=== PATIENT | female | born 2000 | race Caucasian/White ===

== ENCOUNTER → 2023-12-16 15:22 | Outpatient (CLI) | payer OTHER, SELFPAY ==
[2023-12-16 17:11] LABS: Add Manual Diff / Slide Review NO; Basophils Absolute Auto 0 /uL (0-100); Basophils Percent Auto 0.2 % (0-2); Eosinophils Absolute Auto 100 /uL (0-450); Eosinophils Percent Auto 0.6 % (2-4); Hematocrit 30.2 % (36-46); Hemoglobin 10.4 g/dL (12.0-16.0); Lymphocytes Absolute Auto 2500 /uL (1100-4500); Lymphocytes Percent Auto 20.6 % (25-40); Mean Corpuscular HGB Conc 34.3 % (30-36); Mean Corpuscular Hemoglobin 29.5 PG (26-34); Mean Corpuscular Volume 85.9 fL (80-100); Monocytes Absolute Auto 700 /uL (0-900); Neutrophils Absolute Auto 8900 /uL (1500-7000); Neutrophils Percent Auto 72.6 % (50-75); Platelet Count 272 X10^3/uL (150-400); Red Blood Cell Count 3.52 X10^6/uL (4.0-5.2); Red Cell Distribution Width 13.9 % (11.6-14.8); White Blood Cell Count 12.3 X10^3/uL (4.5-11.0)
[2023-12-16 17:20] LABS: Hemoglobin A1C% w Est Avg Glu 5.1 % (4.0-6.0)
[2023-12-16 17:21] LABS: Appearance Urine UA CLOUDY; Bilirubin Urine UA NEGATIVE (NEGATIVE); Color Urine UA YELLOW; Glucose Urine UA NEGATIVE (Negative); Ketones Urine UA TRACE (NEGATIVE); Leukocyte Esterase Urine UA 1+ (NEGATIVE); Nitrite Urine UA NEGATIVE (Negative); Occult Blood Urine UA NEGATIVE (Negative); Protein Urine UA TRACE (Negative)
[2023-12-16 17:33] LABS: pH Urine UA 8.5 (4.5-8.0)
[2023-12-16 17:38] LABS: Amorphous Sediment Urine 2+; Bacteria Urine Many (>30); RBC Urine None Seen (0-5/HPF); Squamous Epithelial Cell Urine 10-30 /HPF (0-5/HPF); Urine Volume 10mL (spun); WBC Urine 5-10/HPF (0-5/HPF)
[2023-12-16 21:37] LABS: Hepatitis B Surface Antigen NEGATIVE s/c (NEGATIVE); Rubella Antibody IgG 42.7 IU/mL (>15)
[2023-12-16 21:53] LABS: Hep C Virus Ab w/Reflex Quant NEGATIVE s/c (NEGATIVE)
[2023-12-16 21:54] LABS: HIV 1 & 2 Ab/Ag 4th Gen Combo NEGATIVE (NEGATIVE)
== END ==
PROVIDERS: Referring Provider Family Medicine; Visit Provider Family Medicine
DX: O99.210 Obesity complicating pregnancy, unspecified trimester (principal)
CPT/HCPCS: 36415; 80055; 81003; 81015; 83036; 86787; 86803; 86850; 86900; 86901; 87086; 87389

== ENCOUNTER 2023-12-29 22:57 | Emergency (ER) | payer OTHER, SELFPAY ==
[2023-12-29 23:08] VITALS: BP 142/68; PULSE 96; RESP 18; TEMP 36.9; O2SAT 99; BMI 37.3
--- NOTE | 2023-12-29 23:11 | ED_ITS ---
HPI - Nausea/Vomiting/Diarrhea General Chief complaint: Nausea/Vomiting/Diarrhea Stated complaint: , persistent nausea Time Seen by Provider: 12/29/23 23:00 History of Present Illness HPI Narrative: 23yo at 9wks gestation presents for N/V. Reports 2-3 episodes of emesis daily. Previously went to walk-in clinic, given zofran, however still having episodes of emesis. Denies vaginal bleeding, contractions. Related Data Home Medications Medication Instructions Recorded Confirmed cholecalciferol (vitamin D3) 125 125 mcg PO DAILY 11/28/23 12/15/23 mcg (5,000 unit) capsule ferrous fumarate 325 mg (106 mg 325 mg PO DAILY 11/28/23 12/15/23 iron) tablet (Queenie) vitamin-ferrous sulfate tab PO 11/28/23 12/15/23 27 mg iron-folic acid 0.8 mg tablet Previous Rx's Medication Instructions Recorded ondansetron 4 mg disintegrating 4 mg PO Q8H PRN nausea and 12/29/23 tablet vomiting #30 tabs metoclopramide HCl 10 mg tablet 10 mg PO Q6H PRN nausea and 12/30/23 vomiting #30 tabs Allergies Allergy/AdvReac Type Severity Reaction Status Date / Time No Known Drug Allergies Allergy Unverified 12/15/23 11:57 Patient History Medical History ADD (attention deficit disorder) Depression COVID-19 Surgical History Status post cryotherapy of skin lesion [place] teeth extracted History of removal of skin mole (~2008) Family History Mother Hypertension Thyroid cancer Nodular thyroid disease Father Hyperlipidemia Hypertension Skin cancer Degenerative disc disease History of spinal fusion Grandmother Type 1 diabetes Dementia Grandmother Diabetes mellitus Diabetic kidney disease Grandfather Heavy smoker Aunt Insomnia Aunt Hypertension Heart disease Uncle Stroke Smoker Social History marital status: unmarried,living together number of children: 2 (4 year old stepson, 2 year old stepdaughter) household members: significant other and children lives independently: Yes caregiver/support person: Yes housing: [facility] ([facility]) pets and animals: Yes (2 cats; s/o managing litter boxes) education level: high school 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[employer]) current occupational exposures/hazards: No special chiki needs: No travel history: recent ([place], [place]) seatbelt use: always helmet use: Yes water heater temp set < 120 deg: Yes working smoke detector in home: Yes fire extinguisher in home: No carbon monox detector in home: Yes firearms in home: Yes firearms unloaded and locked: Yes do you feel safe at home: Yes Smoking Status: Never smoker second hand exposure: Yes (social exposure) alcohol intake: former (typically 1 glass wine daily when not ) substance use type: does not use during the past year weight has: other (wide (10-20lb fluctuates)) well-balanced diet: about half the time daily servings fruits/ve-4 caffeine: Yes (occasional soft drinks or Cook) Type(s) of exercise: none and walking Smoking Status: Never smoker Exam Initial Vital Signs Initial Vital Signs: Vital Signs Temperature 98.4 F 12/29/23 23:08 Pulse Rate 96 H 12/29/23 23:08 Respiratory Rate 18 12/29/23 23:08 Blood Pressure 142/68 H 12/29/23 23:08 Pulse Oximetry 99 12/29/23 23:08 Oxygen Delivery Method Room Air 12/29/23 23:08 Const: Awake, alert, no acute distress, nontoxic appearing Cardiac: regular rate, regular rhythm RESP: unlabored, clear bilaterally, no wheezing GI: Soft, nontender, nondistended Skin: Warm, Dry, intact, no rashes Neuro: AO x3, CN II-XII grossly intact, moves all extremities Course Orders Ordered: ED Orders 12/29/23 23:30 CBC Auto Diff [Complete Blood Count AUTO DIFF] Stat CMP [Comprehensive Metabolic Panel] Stat 12/30/23 00:56 Urine Microscopic Stat Discontinued Medications Sodium Chloride (Normal Saline 0.9%) 1,000 mls @ 1,000 mls/hr IV BOLUS ONE Stop: 12/30/23 00:07 Last Infusion: 12/30/23 00:17 Dose: Infused Documented By: Admin: 12/29/23 23:17 Dose: 1,000 mls/hr Documented By: Metoclopramide HCl (Metoclopramide 10 Mg/2 Ml Inj) 10 mg IV NOW ONE Stop: 12/29/23 23:09 Last Admin: 12/29/23 23:17 Dose: 10 mg Documented By: Vital Signs Vital signs: Vital Signs - 8 hr 12/29/23 23:08 Temperature 98.4 F Pulse Rate 96 H Respiratory Rate 18 Blood Pressure 142/68 H Pulse Oximetry 99 Oxygen Delivery Method Room Air MDM - Nausea/Vomiting/Diarrhea Lab Data 12/29/23 23:30 12/29/23 23:30 Labs: Lab Results 12/29/23 12/30/23 Range/Units 23:30 00:56 WBC 11.1 H (4.5-11.0) X10^3/uL RBC 3.66 L (4.0-5.2) X10^6/uL Hgb 10.7 L (12.0-16.0) g/dL Hct 31.7 L (36-46) % MCV 86.5 (80-100) fL MCH 29.2 (26-34) PG MCHC 33.7 (30-36) % RDW 13.5 (11.6-14.8) % Plt Count 274 (150-400) X10^3/uL Neut % (Auto) 68.6 (50-75) % Lymph % (Auto) 23.4 L (25-40) % [place] % (Auto) 7.1 (3-14) % Eos % (Auto) 0.3 L (2-4) % Baso % (Auto) 0.6 (0-2) % Neut # (Auto) 7600 H (6365-2124) /uL Lymph # (Auto) 2600 (7186-7782) /uL [place] # (Auto) 800 (0-900) /uL Eos # (Auto) 0 (0-450) /uL Baso # (Auto) 100 (0-100) /uL Sodium 135 L (137-145) mmol/L Potassium 3.6 (3.4-5.1) mmol/L Chloride 102 (98-107) mmol/L Carbon Dioxide 23 (22-32) mmol/L BUN 6 L (7-17) mg/dL Creatinine 0.57 (0.52-1.04) mg/dL Estimated GFR > 60 (>60) mL/min BUN/Creatinine Ratio 10.5 (6-22) Glucose 107 H (70-100) mg/dL Calcium 9.3 (8.4-10.2) mg/dL Total Bilirubin 0.4 (0.2-1.3) mg/dL AST 36 (14-36) IU/L ALT 54 H (<35) IU/L Alkaline Phosphatase 78 (38-126) U/L Total Protein 7.4 (6.3-8.2) g/dL Albumin 4.0 (3.5-5.0) g/dL Globulin 3.4 (1.7-4.1) g/dL Albumin/Globulin Ratio 1.2 (1.0-2.8) Urine RBC 0-1/hpf (0-5/HPF) Urine WBC 0-1/hpf (0-5/HPF) Ur Squamous Epith Cells 10-30 /hpf H (0-5/HPF) Amorphous Sediment 1+ Urine Bacteria Few (2-10) H (None) Ur Culture Indicated? Cult not indicated Vol Urine Centrifuged 10ml (spun) Urine Dip Bedside Urine Glucose Negative Bedside Urine Bilirubin - Negative Bedside Urine Ketone - Negative Urine Specific [place] 1.020 Bedside Urine Occult Blood - Negative Bedside Urine pH 6.0 Bedside Urine Protein - Negative Bedside Urine Urobilinogen 1+ 2mg Bedside Urine Nitrite - Negative Bedside Urine Leukocytes +/- 15 Esterase MDM Narrative Medical decision making narrative: Nausea and vomiting in early . Already confirmed IUP. No abdominal pain. Laboratory work unremarkable. Urinalysis with some leukocyte esterase, however contaminated by multiple squamous cells. Low suspicion for infection, patient denies signs or symptoms of UTI. Nausea controlled with Reglan. Prescription sent to pharmacy of choice. OBGYN follow up advised. Note for work provided Discharge Plan Departure Patient Disposition: Home Clinical Impression: Vomiting of Instructions: DI for Hyperemesis Gravidarum Activity Restrictions/Additional Instructions: Reglan, which is a different nausea medication approved in , has been sent to the [facility] in [place]. If you are still having vomiting with this medication then I recommend talking to your OBGYN about other medication options you may use. Your laboratory work here is normal without signs of dehydration. Your urine had some bacteria, but also a lot of skin cells, which can contaminate the sample. I do not suspect a urine infection at this time Prescriptions: New metoclopramide HCl 10 mg tablet 10 mg PO Q6H PRN (Reason: nausea and vomiting) Qty: 30 0RF No Action ondansetron 4 mg tablet,disintegrating 4 mg PO Q8H PRN (Reason: nausea and vomiting) Qty: 30 0RF vit-ferrous sulfat-FA 27 mg iron- 0.8 mg tablet PO cholecalciferol (vitamin D3) 125 mcg (5,000 unit) capsule 125 mcg PO DAILY Ferretts 325 mg (106 mg iron) tablet 325 mg PO DAILY Referrals: ProviderRowena [Primary Care Provider] - Stand Alone Forms: Patient Portal/API, Work Release Note
[2023-12-29] MEDS: METOCLOPRAMIDE 10 MG/2 ML INJ IV (23:17)
[2023-12-29] MEDS: SODIUM CHLORIDE 0.9% 1,000 ML 1000 ML IV (23:17)
[2023-12-29 23:42] LABS: Add Manual Diff / Slide Review NO; Basophils Absolute Auto 100 /uL (0-100); Basophils Percent Auto 0.6 % (0-2); Eosinophils Absolute Auto 0 /uL (0-450); Eosinophils Percent Auto 0.3 % (2-4); Hematocrit 31.7 % (36-46); Hemoglobin 10.7 g/dL (12.0-16.0); Lymphocytes Absolute Auto 2600 /uL (1100-4500); Lymphocytes Percent Auto 23.4 % (25-40); Mean Corpuscular HGB Conc 33.7 % (30-36); Mean Corpuscular Hemoglobin 29.2 PG (26-34); Mean Corpuscular Volume 86.5 fL (80-100); Monocytes Absolute Auto 800 /uL (0-900); Monocytes Percent Auto 7.1 % (3-14); Neutrophils Absolute Auto 7600 /uL (1500-7000); Neutrophils Percent Auto 68.6 % (50-75); Platelet Count 274 X10^3/uL (150-400); Red Blood Cell Count 3.66 X10^6/uL (4.0-5.2); Red Cell Distribution Width 13.5 % (11.6-14.8); White Blood Cell Count 11.1 X10^3/uL (4.5-11.0)
[2023-12-29 23:51] LABS: Alanine Aminotransferase 54 IU/L (<35); Albumin Globulin Ratio 1.2 (1.0-2.8); Alkaline Phosphatase 78 U/L (38-126); Aspartate Aminotransferase 36 IU/L (14-36); BUN Creatinine Ratio 10.5 (6-22); Bilirubin Total 0.4 mg/dL (0.2-1.3); Blood Urea Nitrogen 6 mg/dL (7-17); Calcium 9.3 mg/dL (8.4-10.2); Carbon Dioxide 23 mmol/L (22-32); Chloride 102 mmol/L (98-107); Estimated Glomerular Filt Rate > 60 mL/min (>60); Globulin 3.4 g/dL (1.7-4.1); Glucose 107 mg/dL (70-100); HEMOLYSIS < 15 (0-50); Potassium 3.6 mmol/L (3.4-5.1); Sodium 135 mmol/L (137-145); Total Protein 7.4 g/dL (6.3-8.2)
[2023-12-30 01:05] LABS: Amorphous Sediment Urine 1+; Bacteria Urine Few (2-10); Culture Indicated Urine Cult Not Indicated; RBC Urine 0-1/HPF (0-5/HPF); Squamous Epithelial Cell Urine 10-30 /HPF (0-5/HPF); Urine Volume 10mL (spun); WBC Urine 0-1/HPF (0-5/HPF)
[2023-12-30 01:20] VITALS: BP 107/84; PULSE 73; RESP 18; TEMP 36.9; O2SAT 98
== END 2023-12-30 01:21 | disposition home or self-care (01) ==
PROVIDERS: Emergency Provider Emergency Medicine
DX: O21.9 Vomiting of pregnancy, unspecified (principal); Z3A.00 Weeks of gestation of pregnancy not specified
CPT/HCPCS: 36415; 80053; 81003; 81015; 85025; 96361; 96374; 99284; J2765

== ENCOUNTER 2024-01-06 22:08 | Emergency (ER) | payer OTHER, SELFPAY ==
[2024-01-06 22:11] VITALS: BP 121/74; PULSE 112; RESP 18; TEMP 36; O2SAT 97; BMI 36.8
--- NOTE | 2024-01-06 22:41 | ED_ITS ---
HPI - Nausea/Vomiting/Diarrhea General Chief complaint: Nausea/Vomiting/Diarrhea Stated complaint: 10 weeks prgnant, vomiting Time Seen by Provider: 01/06/24 22:34 Source: patient Mode of arrival: Ambulatory History of Present Illness HPI Narrative: at approximately 10 weeks gestational age presents for nausea and vomiting in . Seen in this emergency department previously for same symptoms, she initially improved after receiving Reglan it was discharged with Reglan prescription. Patient's insurance does not cover likely just and she states that if her medications are not covered by her insurance then she can not afford them. Reports 2-3 episodes of emesis and lightheaded sensation, prompting her visit to the ER today. Related Data Home Medications Medication Instructions Recorded Confirmed cholecalciferol (vitamin D3) 125 125 mcg PO DAILY 11/28/23 12/15/23 mcg (5,000 unit) capsule ferrous fumarate 325 mg (106 mg 325 mg PO DAILY 11/28/23 12/15/23 iron) tablet (Queenie) vitamin-ferrous sulfate tab PO 11/28/23 12/15/23 27 mg iron-folic acid 0.8 mg tablet Previous Rx's Medication Instructions Recorded ondansetron 4 mg disintegrating 4 mg PO Q8H PRN nausea and 12/29/23 tablet vomiting #30 tabs metoclopramide HCl 10 mg tablet 10 mg PO Q6H PRN nausea and 12/30/23 vomiting #30 tabs ondansetron HCl 2 mg/mL 4 mg (2 mL) IV DAILY PRN nausea 12/31/23 intravenous solution and vomiting #2 mL promethazine 25 mg tablet 25 mg PO Q6H PRN nausea and 01/06/24 vomiting #30 tabs cephalexin 500 mg capsule 500 mg PO TID #15 caps 01/07/24 Allergies Allergy/AdvReac Type Severity Reaction Status Date / Time No Known Drug Allergies Allergy Unverified 12/15/23 11:57 Patient History Medical History ADD (attention deficit disorder) Depression COVID-19 Surgical History Status post cryotherapy of skin lesion [place] teeth extracted History of removal of skin mole (~2008) Family History Mother Hypertension Thyroid cancer Nodular thyroid disease Father Hyperlipidemia Hypertension Skin cancer Degenerative disc disease History of spinal fusion Grandmother Type 1 diabetes Dementia Grandmother Diabetes mellitus Diabetic kidney disease Grandfather Heavy smoker Aunt Insomnia Aunt Hypertension Heart disease Uncle Stroke Smoker Social History marital status: unmarried,living together number of children: 2 (4 year old stepson, 2 year old stepdaughter) household members: significant other and children lives independently: Yes caregiver/support person: Yes housing: condominium ([facility]) pets and animals: Yes (2 cats; s/o managing litter boxes) education level: high school 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[employer]) current occupational exposures/hazards: No special chiki needs: No travel history: recent ([place], [place]) seatbelt use: always helmet use: Yes water heater temp set < 120 deg: Yes working smoke detector in home: Yes fire extinguisher in home: No carbon monox detector in home: Yes firearms in home: Yes firearms unloaded and locked: Yes do you feel safe at home: Yes Smoking Status: Never smoker second hand exposure: Yes (social exposure) alcohol intake: former (typically 1 glass wine daily when not ) substance use type: does not use during the past year weight has: other (wide (10-20lb fluctuates)) well-balanced diet: about half the time daily servings fruits/ve-4 caffeine: Yes (occasional soft drinks or Andrea) Type(s) of exercise: none and walking Smoking Status: Never smoker Exam Initial Vital Signs Initial Vital Signs: Vital Signs Temperature 96.8 F L 01/06/24 22:11 Pulse Rate 112 H 01/06/24 22:11 Respiratory Rate 18 01/06/24 22:11 Blood Pressure 121/74 01/06/24 22:11 Pulse Oximetry 97 01/06/24 22:11 Oxygen Delivery Method Room Air 01/06/24 22:11 Const: Awake, alert, no acute distress, nontoxic appearing Cardiac: tachycardia, regular rhythm RESP: unlabored, clear bilaterally, no wheezing GI: Soft, nontender, nondistended Skin: Warm, Dry, intact, no rashes Neuro: AO x3, CN II-XII grossly intact, moves all extremities Course Orders Ordered: Discontinued Medications Diphenhydramine HCl (Diphenhydramine 50 Mg/Ml Vial) 50 mg IV NOW ONE Stop: 01/06/24 22:35 Last Admin: 01/06/24 22:50 Dose: 50 mg Documented By: JAROCHO Sodium Chloride (Normal Saline 0.9%) 1,000 mls @ 1,000 mls/hr IV BOLUS ONE Stop: 01/06/24 23:46 Last Infusion: 01/06/24 23:42 Dose: Infused Documented By: Admin: 01/06/24 22:53 Dose: 1,000 mls/hr Documented By: JAROCHO Metoclopramide HCl (Metoclopramide 10 Mg/2 Ml Inj) 10 mg IV NOW ONE Stop: 01/06/24 22:35 Last Admin: 01/06/24 22:50 Dose: 10 mg Documented By: JAROCHO Vital Signs Vital signs: Vital Signs - 8 hr 01/06/24 22:11 Temperature 96.8 F L Pulse Rate 112 H Respiratory Rate 18 Blood Pressure 121/74 Pulse Oximetry 97 Oxygen Delivery Method Room Air MDM - Nausea/Vomiting/Diarrhea Lab Data Labs: Lab Results 01/06/24 Range/Units 23:50 Urine RBC 0-1/hpf (0-5/HPF) Urine WBC 0-1/hpf (0-5/HPF) Ur Squamous Epith Cells 10-30 /hpf H (0-5/HPF) Urine Bacteria Many (>30) H (None) Urine Mucus 2+ H (Negative) Vol Urine Centrifuged 10ml (spun) Urine Dip Bedside Urine Glucose Negative Bedside Urine Bilirubin - Negative Bedside Urine Ketone - Negative Urine Specific [place] 1.015 Bedside Urine Occult Blood - Negative Bedside Urine pH 6 Bedside Urine Protein +/- 15 Bedside Urine Urobilinogen - Negative Bedside Urine Nitrite - Negative Bedside Urine Leukocytes +++ 500 Esterase MDM Narrative Medical decision making narrative: Nausea and vomiting in first-trimester . Abdomen soft, hemodynamically stable. Not improved with Reglan at home. Patient received fluids and antiemetics, able tolerate p.o., states she feels much better. Likely just not covered by her insurance and patient states that she will not be able to afford any medication not covered by insurance. Promethazine sent to pharmacy of choice. Note for work provided Incidentally found to have bacteria and leukocyte esterase in urine. Patient denies symptoms of UTI, however since she was we will treat with antibiotics. Discharge Plan Departure Patient Disposition: Home Clinical Impression: Nausea and vomiting in Instructions: Nausea of (Alternative Therapy) Activity Restrictions/Additional Instructions: A prescription for Phenergan has been sent to the pharmacy. This may help better than the Reglan for nausea and vomiting. Make sure that you continue to follow up with your OBGYN for your nausea and vomiting in . In addition you had bacteria in your urine. Antibiotics have been sent to the pharmacy. Please make sure you complete all of the medications even if you do not feel symptoms. Prescriptions: New promethazine 25 mg tablet 25 mg PO Q6H PRN (Reason: nausea and vomiting) Qty: 30 0RF cephalexin 500 mg capsule 500 mg PO TID Qty: 15 0RF No Action ondansetron 4 mg tablet,disintegrating 4 mg PO Q8H PRN (Reason: nausea and vomiting) Qty: 30 0RF ondansetron HCl 2 mg/mL solution 4 mg IV DAILY PRN (Reason: nausea and vomiting) Qty: 2 0RF Rx Instructions: administer at time of saline bolus for hyperemesis vit-ferrous sulfat-FA 27 mg iron- 0.8 mg tablet PO cholecalciferol (vitamin D3) 125 mcg (5,000 unit) capsule 125 mcg PO DAILY Ferretts 325 mg (106 mg iron) tablet 325 mg PO DAILY metoclopramide HCl 10 mg tablet 10 mg PO Q6H PRN (Reason: nausea and vomiting) Qty: 30 0RF Referrals: ProviderRowena [Primary Care Provider] - Stand Alone Forms: Patient Portal/API, Work Release Note
[2024-01-06] MEDS: diphenhydrAMINE 50 MG/ML VIAL IV (22:50)
[2024-01-06] MEDS: METOCLOPRAMIDE 10 MG/2 ML INJ IV (22:50)
[2024-01-06] MEDS: SODIUM CHLORIDE 0.9% 1,000 ML 1000 ML IV (22:53)
[2024-01-07 00:07] LABS: RBC Urine 0-1/HPF (0-5/HPF); Urine Volume 10mL (spun)
[2024-01-07 00:08] LABS: Bacteria Urine Many (>30); WBC Urine 0-1/HPF (0-5/HPF)
[2024-01-07 00:09] LABS: Mucus Urine 2+ (Negative)
[2024-01-07 00:10] LABS: Squamous Epithelial Cell Urine 10-30 /HPF (0-5/HPF)
[2024-01-07 00:39] VITALS: BP 120/71; PULSE 99; RESP 16; O2SAT 99
== END 2024-01-07 00:40 | disposition home or self-care (01) ==
PROVIDERS: Emergency Provider Emergency Medicine
DX: O21.9 Vomiting of pregnancy, unspecified (principal); Z3A.10 10 weeks gestation of pregnancy
CPT/HCPCS: 81003; 81015; 87086; 96361; 96374; 96375; 99283; 99284; J1200; J2765

== ENCOUNTER → 2024-02-25 13:55 | Outpatient (CLI) | payer OTHER, SELFPAY ==
[2024-03-01 13:09] LABS: AFP, Serum 27.5 ng/mL (.); Calc Gestational Age As provided (.); Estriol, Free 1.55 ng/mL (.); Inhibin A, Dimeric 95.53 pg/mL (.); Maternal Ethnicity Caucasian (.); Maternal Weight 199 lbs (.); Number of Fetuses No (.); OSBR Risk 1 IN 10000 (.); Results Report (.); Test Results *Screen Negative* (.); hCG, MoM 0.84 (.); hCG, Serum 21758 mIU/mL (.)
== END ==
PROVIDERS: Referring Provider Family Medicine; Visit Provider Family Medicine
DX: Z34.00 Encounter for supervision of normal first pregnancy, unspecified trimester (principal)
CPT/HCPCS: 82105; 82677; 84702; 86336

== ENCOUNTER → 2024-03-05 08:25 | Outpatient (CLI) | payer OTHER, SELFPAY ==
--- NOTE | 2024-03-05 08:26 | DI.US.S_ITS ---
PROCEDURE: US OB >= 14 WEEKS FETUS INDICATIONS: ANATOMY OUTSIDE/PRIOR DATING DATA: LMP-based estimated date of delivery (BRAYAN): 07/24/2024. First dating scan (date and location): 12/15/2023. Estimated date of delivery (BRAYAN) from first dating scan: 08/01/2024 working BRAYAN. TECHNIQUE: Real-time scanning was performed of the fetus, with image documentation and biometric measurements. COMPARISON: None. FINDINGS: General: A single living intrauterine gestation is present. Presentation: Vertex. Placenta: Placental position is anterior , without previa. Amniotic fluid index: 14.2 cm, normal range is 5-24 cm. Single deepest vertical pocket is 5 cm. heart rate: 131 beats per minute. Maternal cervical canal: 3.9 cm long. Normal lower limit is 2.5 cm. biometrics: Biparietal diameter: 4.6 cm, 20 weeks Head circumference: 17 cm, 19 weeks and 4 days Abdominal circumference: 13 cm 18 weeks and 4 days Femur length: 3.1 cm, 19 weeks and 3 days Clinically estimated gestational age: 18 weeks and 5 days Composite gestational age from present scan: 19 weeks and 3 days Estimated weight and percentile: 271 g, 66% Anatomic survey: Neuro: Ventricles are non-dilated at less than 10 mm. Cisterna magna is normal at 3-11 mm. Cerebellum is normal in size and morphology. Nuchal skin fold: Normal at less than 6 mm between 14-21 weeks gestational age. Face: Nose and lips, facial profile are normal. Spine: No evidence for spina bifida. Heart: 4-chambered heart is present, with normal ventricular outflow tracts. Diaphragm: Diaphragm is intact. Stomach: Left-sided stomach is present. Kidneys: No hydronephrosis. Normal is less than 5 mm in 2nd trimester, less than 7 mm in 3rd trimester. Cord: 3-vessel cord has orthotopic insertion. Bladder: Normal in size. Extremities: All 4 extremities identified. IMPRESSION: Living intrauterine gestation at 18 weeks and 5 days. EFW within normal limits at the 66 percentile. Normal MAITE. No significant abnormalities on routine anatomic survey Dictated by: Gilmar Bullock M.D. on 03/05/2024 at 13:55 Approved by: Gilmar Bullock M.D. on 03/05/2024 at 13:59
== END ==
PROVIDERS: Referring Provider Family Medicine; Visit Provider Family Medicine
DX: Z34.02 Encounter for supervision of normal first pregnancy, second trimester (principal); Z3A.18 18 weeks gestation of pregnancy
CPT/HCPCS: 76811

== ENCOUNTER 2024-04-29 09:54 | Emergency (ER) | payer OTHER, SELFPAY ==
[2024-04-29 10:08] VITALS: BP 120/80; PULSE 107; RESP 15; TEMP 36.5; O2SAT 98; BMI 36.0
--- NOTE | 2024-04-29 10:17 | EKG_ITS ---
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
[2024-04-29 10:32] LABS: Add Manual Diff / Slide Review NO; Basophils Absolute Auto 100 /uL (0-100); Basophils Percent Auto 0.3 % (0-2); Eosinophils Absolute Auto 100 /uL (0-450); Eosinophils Percent Auto 0.4 % (2-4); Hematocrit 29.1 % (36-46); Hemoglobin 9.7 g/dL (12.0-16.0); Lymphocytes Absolute Auto 2400 /uL (1100-4500); Mean Corpuscular HGB Conc 33.4 % (30-36); Mean Corpuscular Hemoglobin 28.1 PG (26-34); Mean Corpuscular Volume 84.2 fL (80-100); Monocytes Absolute Auto 800 /uL (0-900); Monocytes Percent Auto 4.9 % (3-14); Neutrophils Absolute Auto 12800 /uL (1500-7000); Neutrophils Percent Auto 79.4 % (50-75); Platelet Count 338 X10^3/uL (150-400); Red Blood Cell Count 3.45 X10^6/uL (4.0-5.2); Red Cell Distribution Width 13.8 % (11.6-14.8); White Blood Cell Count 16.2 X10^3/uL (4.5-11.0)
[2024-04-29 10:38] LABS: Prothrombin Time 11.5 SECONDS (9.4-12.5)
[2024-04-29 10:41] LABS: Alanine Aminotransferase 22 IU/L (<35); Alkaline Phosphatase 122 U/L (38-126); Aspartate Aminotransferase 23 IU/L (14-36); BUN Creatinine Ratio 10.2 (6-22); Bilirubin Total 0.4 mg/dL (0.2-1.3); Blood Urea Nitrogen 5 mg/dL (7-17); Carbon Dioxide 23 mmol/L (22-32); Creatine Kinase < 20 U/L (30-135); Estimated Glomerular Filt Rate > 60 mL/min (>60); HEMOLYSIS < 15 (0-50); PTT Partial Thromboplastin Tim 35 SECONDS (25.1-36.5)
[2024-04-29 10:50] LABS: Albumin 3.5 g/dL (3.5-5.0); Calcium 8.9 mg/dL (8.4-10.2); Chloride 105 mmol/L (98-107); Globulin 3.6 g/dL (1.7-4.1); Glucose 139 mg/dL (70-100); Lipase 52 U/L (23-300); Magnesium 1.6 mg/dL (1.6-2.3); Potassium 3.8 mmol/L (3.4-5.1); Sodium 133 mmol/L (137-145); Total Protein 7.1 g/dL (6.3-8.2)
[2024-04-29 10:54] LABS: NT-proBNP (BNP-Adult 18+) < 20 pg/mL (<125); Troponin I < 0.012 ng/mL (0.01-0.034)
[2024-04-29 11:37] VITALS: BP 111/69; PULSE 109; RESP 16; O2SAT 98
[2024-04-29 11:57] VITALS: BP 119/77; PULSE 109; RESP 21; O2SAT 97
[2024-04-29 12:00] VITALS: BP 111/65; PULSE 107; RESP 23; O2SAT 96
--- NOTE | 2024-04-29 12:06 | PC.NURSE ---
unable to obtain heart tones. Pt states baby is usually difficult to find. Pt states she has felt baby very active today and moving during assesment,.
--- NOTE | 2024-04-29 12:15 | ED_ITS ---
HPI - Chest Pain General Chief Complaint: Chest Pain Stated Complaint: chest pain, elevated heart rate Time Seen by Provider: 04/29/24 10:23 Mode of arrival: Ambulatory History of Present Illness HPI narrative: 23-year-old at 26 weeks uncomplicated going well so far. We will last 24 hours she is having significant increased breast pain left more than the right. Tylenol was not effective in controlling the pain, there has been no redness, no nipple discharge, baby has been active. She has not short of breath there has been no cough. She is slightly tachycardic but she notes that she has been tachycardic since her was initially diagnosed. She has not feeling short of breath no abdominal pain. Related Data Home Medications Medication Instructions Recorded Confirmed vitamin-ferrous sulfate tab PO 11/28/23 04/29/24 27 mg iron-folic acid 0.8 mg tablet Previous Rx's Medication Instructions Recorded ondansetron 4 mg disintegrating 4 mg PO Q8H PRN nausea and 12/29/23 tablet vomiting #30 tabs Double Electric Breast Pump and #1 ea 04/23/24 Supplies cephalexin 500 mg capsule 500 mg PO TID #15 caps 04/29/24 oxycodone-acetaminophen 5 mg-325 1 tab PO Q6H PRN pain #10 tabs 04/29/24 mg tablet Allergies Allergy/AdvReac Type Severity Reaction Status Date / Time No Known Drug Allergies Allergy Verified 04/29/24 10:08 Review of Systems Review of Systems Narrative: Pertinent positive and negative findings as per HPI Patient History Medical History ADD (attention deficit disorder) Depression COVID-19 Surgical History Status post cryotherapy of skin lesion [place] teeth extracted History of removal of skin mole (~2008) Family History Mother Hypertension Thyroid cancer Nodular thyroid disease Father Hyperlipidemia Hypertension Skin cancer Degenerative disc disease History of spinal fusion Grandmother Type 1 diabetes Dementia Grandmother Diabetes mellitus Diabetic kidney disease Grandfather Heavy smoker Aunt Insomnia Aunt Hypertension Heart disease Uncle Stroke Smoker Social History marital status: unmarried,living together number of children: 2 (4 year old stepson, 2 year old stepdaughter) household members: significant other and children lives independently: Yes caregiver/support person: Yes [facility]) pets and animals: Yes (2 cats; s/o managing litter boxes) education level: high school 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[employer]) current occupational exposures/hazards: No special chiki needs: No travel history: recent ([place], [place]) seatbelt use: always helmet use: Yes water heater temp set < 120 deg: Yes working smoke detector in home: Yes fire extinguisher in home: No carbon monox detector in home: Yes firearms in home: Yes firearms unloaded and locked: Yes do you feel safe at home: Yes Smoking Status: Never smoker second hand exposure: Yes (social exposure) alcohol intake: former (typically 1 glass wine daily when not ) substance use type: does not use during the past year weight has: other (wide (10-20lb fluctuates)) well-balanced diet: about half the time daily servings fruits/ve-4 caffeine: Yes (occasional soft drinks or Andrea) Type(s) of exercise: none and walking Smoking Status: Never smoker Exam Initial Vital Signs Initial Vital Signs: Vital Signs Temperature 97.7 F 04/29/24 10:08 Pulse Rate 107 H 04/29/24 10:08 Respiratory Rate 15 04/29/24 10:08 Blood Pressure 120/80 04/29/24 10:08 Pulse Oximetry 98 04/29/24 10:08 Oxygen Delivery Method Room Air 04/29/24 10:08 General: Healthy appearing, in no acute distress. Able to give a complete and coherent history. Well-nourished well-developed HEENT: Moist mucous membranes, normal sclera with reactive pupils, Respiratory: Lungs are clear to auscultation, no wheezing no rales no rhonchi. Full and symmetrical air movement Chest: Both breasts are tender underneath the areola left greater than right. There was no nipple discharge or milk. No significant redness or warmth. Pain is absolutely in terminal duct tissue of her breasts. No chest wall pain Cardiac: Tachycardic but otherwise Regular rate and rhythm no murmurs no bruits Abdomen: Soft, gravid. Bedside ultrasound shows heart tones at 160 with active movement Skin: Warm and dry, no rashes Neurologic: Grossly neurologically intact with no obvious asymmetries or abnormalities Psych: Cooperative, appropriate insight and affect Course Orders Ordered: ED Orders 04/29/24 10:12 XR chest 1V Stat EKG-12 Lead Stat 04/29/24 10:22 Complete Blood Count AUTO DIFF Stat Comprehensive Metabolic Panel Stat Lipase Stat Magnesium Stat NT-proBNP (BNP-Adult 18+) Stat PTT Partial Thromboplastin Jitendra Stat Prothrombin Time INR Stat Troponin & CK Cardiac Panel Stat Vital Signs Vital signs: Vital Signs - 8 hr 04/29/24 10:08 04/29/24 11:37 04/29/24 11:37 Temperature 97.7 F Pulse Rate 107 H 109 H Respiratory Rate 15 16 Blood Pressure 120/80 111/69 Pulse Oximetry 98 98 Oxygen Delivery Method Room Air Room Air MDM - Chest Pain Lab Data 04/29/24 10:22 04/29/24 10:22 Labs: Lab Results 04/29/24 Range/Units 10:22 WBC 16.2 H (4.5-11.0) X10^3/uL RBC 3.45 L (4.0-5.2) X10^6/uL Hgb 9.7 L (12.0-16.0) g/dL Hct 29.1 L (36-46) % MCV 84.2 (80-100) fL MCH 28.1 (26-34) PG MCHC 33.4 (30-36) % RDW 13.8 (11.6-14.8) % Plt Count 338 (150-400) X10^3/uL Neut % (Auto) 79.4 H (50-75) % Lymph % (Auto) 15.0 L (25-40) % [place] % (Auto) 4.9 (3-14) % Eos % (Auto) 0.4 L (2-4) % Baso % (Auto) 0.3 (0-2) % Neut # (Auto) 10865 H (2737-9805) /uL Lymph # (Auto) 2400 (8967-1312) /uL [place] # (Auto) 800 (0-900) /uL Eos # (Auto) 100 (0-450) /uL Baso # (Auto) 100 (0-100) /uL PT 11.5 (9.4-12.5) SECONDS INR 1.0 (0.9-1.3) APTT 35 (25.1-36.5) SECONDS Sodium 133 L (137-145) mmol/L Potassium 3.8 (3.4-5.1) mmol/L Chloride 105 (98-107) mmol/L Carbon Dioxide 23 (22-32) mmol/L BUN 5 L (7-17) mg/dL Creatinine 0.49 L (0.52-1.04) mg/dL Estimated GFR > 60 (>60) mL/min BUN/Creatinine Ratio 10.2 (6-22) Glucose 139 H (70-100) mg/dL Calcium 8.9 (8.4-10.2) mg/dL Magnesium 1.6 (1.6-2.3) mg/dL Total Bilirubin 0.4 (0.2-1.3) mg/dL AST 23 (14-36) IU/L ALT 22 (<35) IU/L Alkaline Phosphatase 122 (38-126) U/L Total Creatine Kinase < 20 L (30-135) U/L Troponin I < 0.012 (0.01-0.034) ng/mL NT-Pro-B Natriuret Pep < 20 (<125) pg/mL Total Protein 7.1 (6.3-8.2) g/dL Albumin 3.5 (3.5-5.0) g/dL Globulin 3.6 (1.7-4.1) g/dL Albumin/Globulin Ratio 1.0 (1.0-2.8) Lipase 52 (23-300) U/L [facility] Narrative Medical decision making narrative: 23-year-old at 26 weeks with severe breast pain left side such that she was unable to sleep last night. Low-grade fever, no cough or symptoms beyond the breast tenderness. White count is slightly elevated at 16.2 with minor shift at 79.4. Anemia at 9.7 and 29.1 consistent with mid . Chemistries are unremarkable. Has her tachycardia has been present throughout her , she has having no cough, chest pain, hypoxia her risk for pulmonary embolism is low and additional workup is not deemed appropriate at this time. On clinical exam I am concerned that she is developing mastitis with terminal breast tissue development and significant pain. With shared decision-making we opted to treat with Keflex, did review safety in with the patient. She will continue use Tylenol for pain but I will give her a small prescription of Percocet should she have so much pain that she is unable to sleep. We will have her follow up with her primary care physician. At this point there was no indication for additional imaging or hospitalization and she is safe for discharge Discharge Plan Departure Patient Disposition: Home Clinical Impression: Mastitis during Instructions: DI for Mastitis Activity Restrictions/Additional Instructions: Thank you for coming in today With the acute pain in your breast anterior elevated white blood cell count I am concerned that you are beginning to develop an infection in your breast. At this point there was no indication of abscess or significant cellulitis. I am going to suggest 5 days of Keflex to treat mastitis. This is safe while you are . If you are having increasing redness, new nipple discharge, persistent fevers developing shortness of breath or cough please feel free to come in for further evaluation Prescriptions were transmitted to [facility] in [facility] For the pain use Tylenol and for severe pain that is interfering with sleep you can use 1 oxycodone. You may find that warm compresses to your breasts are also helpful Ultrasound done in the emergency department shows happy little baby quite active with a heart rate at 160 Given the fact that you have been tachycardic throughout your , you have no cough, shortness of breath, your oxygen level is normal and we have an alternate explanation for your slight elevated heart rate I do not believe you have a pulmonary embolism and additional imaging is not indicated today If you find that you are getting worse or develop any new symptoms, please feel free to return to the emergency department for further evaluation. Prescriptions: New cephalexin 500 mg capsule 500 mg PO TID Qty: 15 0RF oxycodone-acetaminophen 5-325 mg tablet 1 tab PO Q6H PRN (Reason: pain) Qty: 10 0RF No Action (DME) Double Electric Breast Pump and Supplies See Rx Instructions .ROUTE .MEDSUPPLY Qty: 1 0RF Rx Instructions: As directed ondansetron 4 mg tablet,disintegrating 4 mg PO Q8H PRN (Reason: nausea and vomiting) Qty: 30 0RF vit-ferrous sulfat-FA 27 mg iron- 0.8 mg tablet PO Referrals: Provider,Rowena LONNY [Primary Care Provider] - Stand Alone Forms: Patient Portal/API/Survey
[2024-04-29 12:30] VITALS: BP 126/71; PULSE 103; RESP 21; O2SAT 96
[2024-04-29] MEDS: cephALEXin 250 MG CAPSULE 500 MG PO (12:52)
== END 2024-04-29 13:01 | disposition home or self-care (01) ==
PROVIDERS: Emergency Provider Emergency Medicine
DX: O91.212 Nonpurulent mastitis associated with pregnancy, second trimester (principal); O99.891 Other specified diseases and conditions complicating pregnancy; Z3A.26 26 weeks gestation of pregnancy
CPT/HCPCS: 80053; 82550; 83690; 83735; 83880; 84484; 85025; 85610; 85730; 93005; 99283

== ENCOUNTER → 2024-05-12 15:44 | Outpatient (CLI) | payer OTHER, SELFPAY ==
[2024-05-12 17:41] LABS: GTT (PREG) 1 Hour PP 50gm Dose 129 mg/dL (76-139)
== END ==
LOC: LAB 15:48
PROVIDERS: Referring Provider Family Medicine; Visit Provider Family Medicine
DX: Z34.00 Encounter for supervision of normal first pregnancy, unspecified trimester (principal)
CPT/HCPCS: 36415; 82950

== ENCOUNTER → 2024-06-01 11:21 | Outpatient (CLI) | payer OTHER, SELFPAY | PROVIDERS: Referring Provider Family Medicine; Visit Provider Family Medicine | DX: Z34.00 Encounter for supervision of normal first pregnancy, unspecified trimester (principal) | CPT/HCPCS: 36415; 86850 ==

== ENCOUNTER 2024-06-11 11:06 | Observation (INO) | payer OTHER, SELFPAY ==
--- NOTE | 2024-06-11 11:48 | DI.US.S_ITS ---
PROCEDURE: US OB >= 14 WEEKS FETUS INDICATIONS: possible labor OUTSIDE/PRIOR DATING DATA: Last menstrual period (LMP): 10/26/2023 LMP-based estimated date of delivery (BRAYAN): 07/24/2024. First dating scan (date and location): 12/15/2023. Estimated date of delivery (BRAYAN) from first dating scan: 08/01/2024. The calculations are made using the ultrasound BRAYAN of 08/02/2023. TECHNIQUE: Real-time scanning was performed of the fetus, with image documentation and biometric measurements. COMPARISON: [facility], OB >= 14 WEEKS FETUS, 03/05/2024, 8:47. FINDINGS: General: A single living intrauterine gestation is present. Presentation: Vertex. Placenta: Placental position is anterior , without previa. Amniotic fluid index: 17.6 cm, normal range is 5-24 cm. Single deepest vertical pocket is 5.9 cm. heart rate: 155 beats per minute. Maternal cervical canal: 3.1 cm long. Normal lower limit is 2.5 cm. biometrics: Clinically estimated gestational age: 32 weeks 5 days IMPRESSION: Single live intrauterine with gestational age of 32 weeks 5 days. [place]ITE is within normal limits. We strive to produce accurate, complete, and clear reports of imaging services. To assist us in improving patient care, this report was composed using standard report templates and voice recognition software. Therefore, it may contain abnormal punctuation, insertions and/or omissions. Occasional wrong-word or sound-alike substitutions may occur. Though we review the report and make efforts to correct it, we do recommend that the report be read carefully in proper context to recognize any text inaccuracies. Dictated by: Rajwinder Vanessa M.D. on 06/11/2024 at 13:38 Approved by: Rajwinder Vanessa M.D. on 06/11/2024 at 13:41
--- NOTE | 2024-06-11 12:47 | P.TNLD_ITS ---
Visit Information Visit Information Date of evaluation: 06/11/24 Primary OB Provider: Aishwarya Coffman Comments/Additional reasons for admission: 23yo at 32w5d here due to lower abdominal cramping. Pt reports frequent lower abdominal cramping. No vaginal bleeding or LOF. Feeling baby move regularly. [facility] Medical History ADD (attention deficit disorder) Depression COVID-19 Surgical History Status post cryotherapy of skin lesion [place] teeth extracted History of removal of skin mole (~2008) Family History Mother Hypertension Thyroid cancer Nodular thyroid disease Father Hyperlipidemia Hypertension Skin cancer Degenerative disc disease History of spinal fusion Grandmother Type 1 diabetes Dementia Grandmother Diabetes mellitus Diabetic kidney disease Grandfather Heavy smoker Aunt Insomnia Aunt Hypertension Heart disease Uncle Stroke Smoker Social History marital status: unmarried,living together number of children: 2 (4 year old stepson, 2 year old stepdaughter) household members: significant other and children lives independently: Yes caregiver/support person: Yes housing: [facility] ([facility]) pets and animals: Yes (2 cats; s/o managing litter boxes) education level: high school 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[employer]) current occupational exposures/hazards: No special chiki needs: No travel history: recent ([place], [place]) seatbelt use: always helmet use: Yes water heater temp set < 120 deg: Yes working smoke detector in home: Yes fire extinguisher in home: No carbon monox detector in home: Yes firearms in home: Yes firearms unloaded and locked: Yes do you feel safe at home: Yes Smoking Status: Never smoker second hand exposure: Yes (social exposure) alcohol intake: former (typically 1 glass wine daily when not ) substance use type: does not use during the past year weight has: other (wide (10-20lb fluctuates)) well-balanced diet: about half the time daily servings fruits/ve-4 caffeine: Yes (occasional soft drinks or Andrea) Type(s) of exercise: none and walking Evaluation Evaluation Baseline heart rate: 135 Variability: Moderate (11-25) monitor accelerations: Present Monitor Decelerations: Absent Category of Tracing: Reactive Comments: intermittent contractions Diagnosis, Plan/Disposition Final Diagnosis (1) contractions: Status: Acute Plan/Disposition Plan: 23yo at 32w5d here due to lower abdominal cramping. Cervical length long. U/A with likely UTI, culture pending but will treat empirically. Keflex sent. Given Nifedipine 10mg x4 to help with contractions, and they resolved. Stressed hydration at home. OB Disposition: home
[2024-06-11 12:58] LABS: Appearance Urine UA SL CLOUDY; Bilirubin Urine UA NEGATIVE (NEGATIVE); Color Urine UA YELLOW; Glucose Urine UA NEGATIVE (Negative); Ketones Urine UA NEGATIVE (NEGATIVE); Leukocyte Esterase Urine UA 1+ (NEGATIVE); Nitrite Urine UA NEGATIVE (Negative); Occult Blood Urine UA 3+ (Negative); Protein Urine UA TRACE (Negative); Urobilinogen Urine UA 0.2 E.U./dL (0.2)
[2024-06-11 13:09] LABS: Bacteria Urine Occasional (0-1); Culture Indicated Urine Specimen Cultured; RBC Urine 30-100/HPF (0-5/HPF); Squamous Epithelial Cell Urine 5-10 /HPF (0-5/HPF); Urine Volume 10mL (spun); WBC Urine 1-5/HPF (0-5/HPF)
[2024-06-11] MEDS: NIFEdipine 10 MG CAPSULE PO ×3 (13:15→14:02)
== END 2024-06-11 15:30 | disposition home or self-care (01) ==
PROVIDERS: Admitting Provider Family Medicine; Referring Provider Family Medicine; Visit Provider Family Medicine
DX: O47.03 False labor before 37 completed weeks of gestation, third trimester (principal); Z3A.32 32 weeks gestation of pregnancy
CPT/HCPCS: 59025; 59050; 76811; 76817; 81001; 87086; G0378; G0379

== ENCOUNTER → 2024-07-02 10:18 | Outpatient (CLI) | payer OTHER, SELFPAY ==
[2024-07-03 12:34] LABS: Strep Grp B PCR NEG for Grp B Strep
== END ==
PROVIDERS: Visit Provider Family Medicine
DX: Z34.00 Encounter for supervision of normal first pregnancy, unspecified trimester (principal); N89.8 Other specified noninflammatory disorders of vagina
CPT/HCPCS: 87086; 87653

== ENCOUNTER 2024-07-09 11:31 | Observation (INO) | payer OTHER, SELFPAY ==
--- NOTE | 2024-07-09 11:54 | P.TNLD_ITS ---
Visit Information Visit Information Date of evaluation: 07/09/24 Primary OB Provider: Aishwarya Coffman Comments/Additional reasons for admission: 23yo at 36w5d here due to elevated BP in clinic. BPs in the low 140s/upper 80s. Pt is asymptomatic. [facility] Medical History ADD (attention deficit disorder) Depression COVID-19 Surgical History Status post cryotherapy of skin lesion [place] teeth extracted History of removal of skin mole (~2008) Family History Mother Hypertension Thyroid cancer Nodular thyroid disease Father Hyperlipidemia Hypertension Skin cancer Degenerative disc disease History of spinal fusion Grandmother Type 1 diabetes Dementia Grandmother Diabetes mellitus Diabetic kidney disease Grandfather Heavy smoker Aunt Insomnia Aunt Hypertension Heart disease Uncle Stroke Smoker Social History marital status: unmarried,living together number of children: 2 (4 year old stepson, 2 year old stepdaughter) household members: significant other and children lives independently: Yes caregiver/support person: Yes housing: 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[employer]) current occupational exposures/hazards: No special chiki needs: No travel history: recent ([place], [place]) seatbelt use: always helmet use: Yes water heater temp set < 120 deg: Yes working smoke detector in home: Yes fire extinguisher in home: No carbon monox detector in home: Yes firearms in home: Yes firearms unloaded and locked: Yes do you feel safe at home: Yes Smoking Status: Never smoker second hand exposure: Yes (social exposure) alcohol intake: former (typically 1 glass wine daily when not ) substance use type: does not use during the past year weight has: other (wide (10-20lb fluctuates)) well-balanced diet: about half the time daily servings fruits/ve-4 caffeine: Yes (occasional soft drinks or Andrea) Type(s) of exercise: none and walking Objective Labs 07/09/24 12:08 07/09/24 12:08 Evaluation Evaluation Baseline heart rate: 140 Variability: Moderate (11-25) monitor accelerations: Present Monitor Decelerations: Absent Category of Tracing: Reactive Diagnosis, Plan/Disposition Plan/Disposition Plan: 23yo at 36w5d here due to elevated BP in clinic. BP in L&D all normal range. Labs show normal pr/cr, slightly elevated liver enzymes however not to concerning level especially with baseline labs minimally elevated. NST reactive. Stable for d/c home. Recommend checking BPs at home daily. Contact us if > 140/90. OB Disposition: home
[2024-07-09 12:17] LABS: Add Manual Diff / Slide Review NO; Basophils Absolute Auto 100 /uL (0-100); Basophils Percent Auto 0.5 % (0-2); Eosinophils Absolute Auto 0 /uL (0-450); Eosinophils Percent Auto 0.3 % (2-4); Hematocrit 30.1 % (36-46); Hemoglobin 9.9 g/dL (12.0-16.0); Lymphocytes Absolute Auto 3700 /uL (1100-4500); Lymphocytes Percent Auto 21.9 % (25-40); Mean Corpuscular HGB Conc 32.7 % (30-36); Mean Corpuscular Hemoglobin 26.4 PG (26-34); Mean Corpuscular Volume 80.8 fL (80-100); Monocytes Absolute Auto 1100 /uL (0-900); Monocytes Percent Auto 6.3 % (3-14); Neutrophils Absolute Auto 12000 /uL (1500-7000); Platelet Count 296 X10^3/uL (150-400); Red Blood Cell Count 3.73 X10^6/uL (4.0-5.2); White Blood Cell Count 16.9 X10^3/uL (4.5-11.0)
[2024-07-09 12:32] LABS: Alanine Aminotransferase 51 IU/L (<35); Albumin 3.5 g/dL (3.5-5.0); Albumin Globulin Ratio 0.9 (1.0-2.8); Alkaline Phosphatase 153 U/L (38-126); Aspartate Aminotransferase 40 IU/L (14-36); BUN Creatinine Ratio 16.4 (6-22); Bilirubin Total 0.5 mg/dL (0.2-1.3); Blood Urea Nitrogen 11 mg/dL (7-17); Calcium 9.9 mg/dL (8.4-10.2); Carbon Dioxide 23 mmol/L (22-32); Chloride 105 mmol/L (98-107); Estimated Glomerular Filt Rate > 60 mL/min (>60); Globulin 3.8 g/dL (1.7-4.1); Glucose 86 mg/dL (70-100); HEMOLYSIS < 15 (0-50); Potassium 4.2 mmol/L (3.4-5.1); Sodium 137 mmol/L (137-145); Total Protein 7.3 g/dL (6.3-8.2)
== END 2024-07-09 14:31 | disposition home or self-care (01) ==
PROVIDERS: Admitting Provider Family Medicine; Referring Provider Family Medicine; Visit Provider Family Medicine
DX: O26.893 Other specified pregnancy related conditions, third trimester (principal); R03.0 Elevated blood-pressure reading, without diagnosis of hypertension; Z3A.36 36 weeks gestation of pregnancy
CPT/HCPCS: 36415; 59025; 80053; 85025; G0378; G0379

== ENCOUNTER 2024-07-10 11:11 | Observation (INO) | payer OTHER, SELFPAY ==
[2024-07-10 11:43] LABS: Add Manual Diff / Slide Review NO; Basophils Absolute Auto 100 /uL (0-100); Basophils Percent Auto 0.3 % (0-2); Eosinophils Absolute Auto 100 /uL (0-450); Eosinophils Percent Auto 0.3 % (2-4); Hematocrit 33.9 % (36-46); Hemoglobin 11.2 g/dL (12.0-16.0); Lymphocytes Absolute Auto 3900 /uL (1100-4500); Lymphocytes Percent Auto 23.1 % (25-40); Mean Corpuscular Hemoglobin 26.6 PG (26-34); Mean Corpuscular Volume 80.7 fL (80-100); Monocytes Absolute Auto 1000 /uL (0-900); Monocytes Percent Auto 5.8 % (3-14); Neutrophils Absolute Auto 12000 /uL (1500-7000); Neutrophils Percent Auto 70.5 % (50-75); Platelet Count 315 X10^3/uL (150-400); White Blood Cell Count 17.1 X10^3/uL (4.5-11.0)
[2024-07-10 11:57] LABS: Alanine Aminotransferase 57 IU/L (<35); Albumin 3.7 g/dL (3.5-5.0); Albumin Globulin Ratio 0.9 (1.0-2.8); Alkaline Phosphatase 169 U/L (38-126); Aspartate Aminotransferase 43 IU/L (14-36); BUN Creatinine Ratio 11.1 (6-22); Bilirubin Total 0.5 mg/dL (0.2-1.3); Blood Urea Nitrogen 7 mg/dL (7-17); Calcium 9.5 mg/dL (8.4-10.2); Carbon Dioxide 21 mmol/L (22-32); Chloride 105 mmol/L (98-107); Estimated Glomerular Filt Rate > 60 mL/min (>60); Globulin 3.9 g/dL (1.7-4.1); Glucose 81 mg/dL (70-100); HEMOLYSIS < 15 (0-50); Potassium 4.3 mmol/L (3.4-5.1); Sodium 135 mmol/L (137-145); Total Protein 7.6 g/dL (6.3-8.2)
[2024-07-10 12:09] LABS: Creatinine Urine Random 89.22 mg/dL; Protein (Total) Urine Random 20 mg/dL (0-12); Protein Creatinine Ratio Urine 0.22 GRAM/24H
[2024-07-10 12:46] VITALS: BP 135/80; PULSE 75
[2024-07-10] MEDS: LABETALOL 100 MG TABLET PO (12:46)
--- NOTE | 2024-07-10 13:15 | PM.OBTRLD ---
Visit Information Visit Information Date of evaluation: 07/10/24 Primary OB Provider: Aishwarya Coffman On-call OB Provider: Leti Quispe Reason for Evaluation: Yes other Comments/Additional reasons for admission: Patient had elevated BP's at home 160's/100's She is taking BP's with a cuff that she bought at [facility] yesterday. Vital Signs Vital Signs: Vital Signs - 8 hr 07/10/24 12:46 Pulse Rate 75 Blood Pressure 135/80 We compared her cuff to ours, hers is running 10-20mm Hg higher No headache or blurred vision. No spots. PFSH Medical History ADD (attention deficit disorder) Depression COVID-19 Surgical History Status post cryotherapy of skin lesion [place] teeth extracted History of removal of skin mole (~2008) Family History Mother Hypertension Thyroid cancer Nodular thyroid disease Father Hyperlipidemia Hypertension Skin cancer Degenerative disc disease History of spinal fusion Grandmother Type 1 diabetes Dementia Grandmother Diabetes mellitus Diabetic kidney disease Grandfather Heavy smoker Aunt Insomnia Aunt Hypertension Heart disease Uncle Stroke Smoker Social History marital status: unmarried,living together number of children: 2 (4 year old stepson, 2 year old stepdaughter) household members: significant other and children lives independently: Yes caregiver/support person: Yes housing: [facility] ([facility]) pets and animals: Yes (2 cats; s/o managing litter boxes) education level: high school 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[employer]) current occupational exposures/hazards: No special chiki needs: No travel history: recent ([place], [place]) seatbelt use: always helmet use: Yes water heater temp set < 120 deg: Yes working smoke detector in home: Yes fire extinguisher in home: No carbon monox detector in home: Yes firearms in home: Yes firearms unloaded and locked: Yes do you feel safe at home: Yes Smoking Status: Never smoker second hand exposure: Yes (social exposure) alcohol intake: former (typically 1 glass wine daily when not ) substance use type: does not use during the past year weight has: other (wide (10-20lb fluctuates)) well-balanced diet: about half the time daily servings fruits/ve-4 caffeine: Yes (occasional soft drinks or Andrea) Type(s) of exercise: none and walking Exam Vital Signs (past 8 hours): - 07/10/24 12:46 Pulse Rate 75 Blood Pressure 135/80 Narrative Exam Narrative: Gen: Sitting up in bed Ext: DTR 1+, 1+ edema, no clonus Objective Labs 07/10/24 11:30 07/10/24 11:30 Labs: Laboratory Results - last 24 hr 07/10/24 11:30 WBC 17.1 H RBC 4.20 Hgb 11.2 L Hct 33.9 L MCV 80.7 MCH 26.6 MCHC 33.0 RDW 16.0 H Plt Count 315 Neut % (Auto) 70.5 Lymph % (Auto) 23.1 L [place] % (Auto) 5.8 Eos % (Auto) 0.3 L Baso % (Auto) 0.3 Neut # (Auto) 79567 H Lymph # (Auto) 3900 [place] # (Auto) 1000 H Eos # (Auto) 100 Baso # (Auto) 100 Sodium 135 L Potassium 4.3 Chloride 105 Carbon Dioxide 21 L BUN 7 Creatinine 0.63 Estimated GFR > 60 BUN/Creatinine Ratio 11.1 Glucose 81 Calcium 9.5 Total Bilirubin 0.5 AST 43 H ALT 57 H Alkaline Phosphatase 169 H Total Protein 7.6 Albumin 3.7 Globulin 3.9 Albumin/Globulin Ratio 0.9 L U Random Total Protein 20 H Urine Creatinine 89.22 Protein/Creatinin Ratio 0.22 Evaluation Evaluation Baseline heart rate: 135 Variability: Moderate (11-25) monitor accelerations: Present Monitor Decelerations: Absent Contraction Frequency (minutes): 10 Uterine Contraction Intensity: Mild Diagnosis, Plan/Disposition Plan/Disposition Plan: Assessment: 23 year old at 36+6 wks gestation Gestational hypertension, possibly impending PEC Slightly elevated LFT's, but elevated earlier in Plan: Labetolol 100mg BID Modified bedrest F/U as scheduled on 07/[address] Coffman Discussed s/s of PEC and what to call/return for
== END 2024-07-10 13:45 | disposition home or self-care (01) ==
PROVIDERS: Admitting Provider Obstetrics & Gynecology; Referring Provider Family Medicine; Visit Provider Obstetrics & Gynecology
DX: O13.3 Gestational [pregnancy-induced] hypertension without significant proteinuria, third trimester (principal); O26.893 Other specified pregnancy related conditions, third trimester; R79.89 Other specified abnormal findings of blood chemistry; Z3A.36 36 weeks gestation of pregnancy
CPT/HCPCS: 36415; 59050; 80053; 82570; 84156; 85025; G0378; G0379

== ENCOUNTER → 2024-07-16 12:01 | Outpatient (CLI) | payer OTHER, SELFPAY ==
[2024-07-16 13:03] LABS: Add Manual Diff / Slide Review NO; Basophils Absolute Auto 100 /uL (0-100); Basophils Percent Auto 0.4 % (0-2); Eosinophils Absolute Auto 0 /uL (0-450); Eosinophils Percent Auto 0.2 % (2-4); Hematocrit 29.5 % (36-46); Hemoglobin 9.8 g/dL (12.0-16.0); Lymphocytes Absolute Auto 3600 /uL (1100-4500); Lymphocytes Percent Auto 25.1 % (25-40); Mean Corpuscular HGB Conc 33.2 % (30-36); Mean Corpuscular Hemoglobin 26.7 PG (26-34); Mean Corpuscular Volume 80.5 fL (80-100); Monocytes Absolute Auto 1000 /uL (0-900); Monocytes Percent Auto 6.8 % (3-14); Neutrophils Absolute Auto 9700 /uL (1500-7000); Neutrophils Percent Auto 67.5 % (50-75); Platelet Count 273 X10^3/uL (150-400); Red Blood Cell Count 3.66 X10^6/uL (4.0-5.2); Red Cell Distribution Width 16.2 % (11.6-14.8); White Blood Cell Count 14.4 X10^3/uL (4.5-11.0)
[2024-07-16 13:36] LABS: Alanine Aminotransferase 29 IU/L (<35); Albumin 3.4 g/dL (3.5-5.0); Albumin Globulin Ratio 1.1 (1.0-2.8); Alkaline Phosphatase 172 U/L (38-126); Aspartate Aminotransferase 29 IU/L (14-36); BUN Creatinine Ratio 13.2 (6-22); Bilirubin Total 0.4 mg/dL (0.2-1.3); Blood Urea Nitrogen 12 mg/dL (7-17); Calcium 10.7 mg/dL (8.4-10.2); Carbon Dioxide 22 mmol/L (22-32); Chloride 104 mmol/L (98-107); Estimated Glomerular Filt Rate > 60 mL/min (>60); Glucose 80 mg/dL (70-100); HEMOLYSIS < 15 (0-50); Potassium 4.6 mmol/L (3.4-5.1); Sodium 135 mmol/L (137-145); Total Protein 6.4 g/dL (6.3-8.2)
[2024-07-16 14:53] LABS: Creatinine Urine Random 96.05 mg/dL; Protein (Total) Urine Random 17 mg/dL (0-12); Protein Creatinine Ratio Urine 0.17 GRAM/24H
== END ==
PROVIDERS: Referring Provider Family Medicine; Visit Provider Family Medicine
DX: O13.9 Gestational [pregnancy-induced] hypertension without significant proteinuria, unspecified trimester (principal)
CPT/HCPCS: 36415; 80053; 82570; 84156; 85025

== ENCOUNTER 2024-07-16 12:21 | Outpatient (CLI) | payer OTHER, SELFPAY ==
--- NOTE | 2024-07-16 12:31 | PM.OBTRLD ---
Visit Information Visit Information Date of evaluation: 07/16/24 Primary OB Provider: Aishwarya Coffman Comments/Additional reasons for admission: 23yo at 37w5d here for NST for gestational HTN. Pt started on Labetalol 100mg BID last week, BPs now in good range. Asymptomatic. [facility] Medical History ADD (attention deficit disorder) Depression COVID-19 Surgical History Status post cryotherapy of skin lesion [place] teeth extracted History of removal of skin mole (~2008) Family History Mother Hypertension Thyroid cancer Nodular thyroid disease Father Hyperlipidemia Hypertension Skin cancer Degenerative disc disease History of spinal fusion Grandmother Type 1 diabetes Dementia Grandmother Diabetes mellitus Diabetic kidney disease Grandfather Heavy smoker Aunt Insomnia Aunt Hypertension Heart disease Uncle Stroke Smoker Social History marital status: unmarried,living together number of children: 2 (4 year old stepson, 2 year old stepdaughter) household members: significant other and children lives independently: Yes caregiver/support person: Yes housing: [facility] ([facility]) pets and animals: Yes (2 cats; s/o managing litter boxes) education level: high school 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[employer]) current occupational exposures/hazards: No special chiki needs: No travel history: recent ([place], [place]) seatbelt use: always helmet use: Yes water heater temp set < 120 deg: Yes working smoke detector in home: Yes fire extinguisher in home: No carbon monox detector in home: Yes firearms in home: Yes firearms unloaded and locked: Yes do you feel safe at home: Yes Smoking Status: Never smoker second hand exposure: Yes (social exposure) alcohol intake: former (typically 1 glass wine daily when not ) substance use type: does not use during the past year weight has: other (wide (10-20lb fluctuates)) well-balanced diet: about half the time daily servings fruits/ve-4 caffeine: Yes (occasional soft drinks or [place]) Type(s) of exercise: none and walking Evaluation Evaluation Baseline heart rate: 140 Variability: Moderate (11-25) monitor accelerations: Present Monitor Decelerations: Absent Category of Tracing: Reactive Diagnosis, Plan/Disposition Final Diagnosis (1) Gestational hypertension: Status: Acute Plan/Disposition Plan: 23yo at 37w5d here for NST for gestational HTN. NST reactive. IOL scheduled for earliest available. Labs pending. Pt will continue monitoring BPs at home. Return for NST 07/27. OB Disposition: home
== END 2024-07-16 12:55 | disposition home or self-care (01) ==
LOC: OB 13:07
PROVIDERS: Referring Provider Family Medicine; Visit Provider Family Medicine
DX: O13.3 Gestational [pregnancy-induced] hypertension without significant proteinuria, third trimester (principal); Z3A.37 37 weeks gestation of pregnancy
CPT/HCPCS: 36415; 59025; 80053; 82570; 84156; 85025; G0378; G0379

== ENCOUNTER 2024-07-21 08:58 | Outpatient (CLI) | payer OTHER, SELFPAY ==
--- NOTE | 2024-07-21 09:26 | P.TNLD_ITS ---
Visit Information Visit Information Date of evaluation: 07/21/24 Primary OB Provider: Aishwarya Coffman Comments/Additional reasons for admission: 23yo at 38w3d here for NST for gHTN. Pt is feeling her baby move regularly. No LOF, contractions, bleeding. [facility] Medical History (Updated 07/21/24 @ 09:27 by Aishwarya Coffman MD) ADD (attention deficit disorder) Depression COVID-19 Surgical History Status post cryotherapy of skin lesion [place] teeth extracted History of removal of skin mole (~2008) Family History Mother Hypertension Thyroid cancer Nodular thyroid disease Father Hyperlipidemia Hypertension Skin cancer Degenerative disc disease History of spinal fusion Grandmother Type 1 diabetes Dementia Grandmother Diabetes mellitus Diabetic kidney disease Grandfather Heavy smoker Aunt Insomnia Aunt Hypertension Heart disease Uncle Stroke Smoker Social History marital status: unmarried,living together number of children: 2 (4 year old stepson, 2 year old stepdaughter) household members: significant other and children lives independently: Yes caregiver/support person: Yes housing: [facility] ([facility]) pets and animals: Yes (2 cats; s/o managing litter boxes) education level: high school 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[employer]) current occupational exposures/hazards: No special chiki needs: No travel history: recent ([place], [place]) seatbelt use: always helmet use: Yes water heater temp set < 120 deg: Yes working smoke detector in home: Yes fire extinguisher in home: No carbon monox detector in home: Yes firearms in home: Yes firearms unloaded and locked: Yes do you feel safe at home: Yes Smoking Status: Never smoker second hand exposure: Yes (social exposure) alcohol intake: former (typically 1 glass wine daily when not ) substance use type: does not use during the past year weight has: other (wide (10-20lb fluctuates)) well-balanced diet: about half the time daily servings fruits/ve-4 caffeine: Yes (occasional soft drinks or [place]) Type(s) of exercise: none and walking Evaluation Evaluation Baseline heart rate: 145 Variability: Moderate (11-25) monitor accelerations: Present Monitor Decelerations: Absent Category of Tracing: Reactive Diagnosis, Plan/Disposition Final Diagnosis (1) Gestational hypertension: Status: Acute (2) 38 weeks gestation of : Status: Acute Plan/Disposition Plan: 23yo at 38w3d here for NST for gHTN. NST reactive. Scheduled for IOL tonight. OB Disposition: home
== END 2024-07-21 09:30 | disposition home or self-care (01) ==
LOC: LABOR 09:36 → OB 13:49
PROVIDERS: Referring Provider Family Medicine; Visit Provider Family Medicine
DX: O13.3 Gestational [pregnancy-induced] hypertension without significant proteinuria, third trimester (principal); Z3A.38 38 weeks gestation of pregnancy
CPT/HCPCS: 59025; G0378; G0379

== ENCOUNTER 2024-07-21 19:09 | Inpatient (IN) | payer OTHER, SELFPAY ==
[2024-07-21 19:48] VITALS: BP 130/82
[2024-07-21 20:28] LABS: Creatinine Urine Random 213.53 mg/dL; Protein (Total) Urine Random 29 mg/dL (0-12); Protein Creatinine Ratio Urine 0.13 GRAM/24H
[2024-07-21] MEDS: DINOPROSTONE VAG (CERVIDIL) 10 MG VAG (20:42)
[2024-07-21 21:00] LABS: Add Manual Diff / Slide Review NO; Basophils Absolute Auto 0 /uL (0-100); Basophils Percent Auto 0.2 % (0-2); Eosinophils Absolute Auto 100 /uL (0-450); Eosinophils Percent Auto 0.4 % (2-4); Hematocrit 28.2 % (36-46); Hemoglobin 9.3 g/dL (12.0-16.0); Lymphocytes Absolute Auto 3100 /uL (1100-4500); Lymphocytes Percent Auto 19.2 % (25-40); Mean Corpuscular HGB Conc 32.8 % (30-36); Mean Corpuscular Hemoglobin 26.6 PG (26-34); Monocytes Absolute Auto 800 /uL (0-900); Monocytes Percent Auto 4.9 % (3-14); Neutrophils Absolute Auto 12300 /uL (1500-7000); Neutrophils Percent Auto 75.3 % (50-75); Platelet Count 261 X10^3/uL (150-400); Red Blood Cell Count 3.48 X10^6/uL (4.0-5.2); Red Cell Distribution Width 16.9 % (11.6-14.8); White Blood Cell Count 16.3 X10^3/uL (4.5-11.0)
[2024-07-21 21:13] LABS: Alanine Aminotransferase 48 IU/L (<35); Albumin 3.4 g/dL (3.5-5.0); Albumin Globulin Ratio 0.9 (1.0-2.8); Alkaline Phosphatase 162 U/L (38-126); Aspartate Aminotransferase 48 IU/L (14-36); BUN Creatinine Ratio 18.8 (6-22); Bilirubin Total 0.3 mg/dL (0.2-1.3); Blood Urea Nitrogen 13 mg/dL (7-17); Calcium 9.2 mg/dL (8.4-10.2); Carbon Dioxide 20 mmol/L (22-32); Chloride 105 mmol/L (98-107); Estimated Glomerular Filt Rate > 60 mL/min (>60); Globulin 3.6 g/dL (1.7-4.1); Glucose 133 mg/dL (70-100); HEMOLYSIS < 15 (0-50); Potassium 3.7 mmol/L (3.4-5.1); Sodium 134 mmol/L (137-145)
[2024-07-21 21:18] VITALS: BP 130/83; PULSE 107
[2024-07-21] MEDS: LABETALOL 100 MG TABLET PO (21:18)
[2024-07-22] MEDS: CALCIUM CARBONATE 500 MG TAB 1000 MG PO (01:01)
[2024-07-22] MEDS: LACTATED RINGERS 1,000 ML 100 ML IV (01:30)
--- NOTE | 2024-07-22 02:48 | P.HPOB_ITS ---
OB HPI Date/Time Date of admission: 07/22/24 Date Patient Seen: 07/22/24 History of Present Condition Chief complaint: induction BRAYAN Calculator 2 Estimated Delivery Date Method Current WG Current Estimate 08/01/24 Ultrasound #1 38w 4d Other Estimates 07/24/24 LMP (Certain) 39w 5d Estimated Gestational Age (weeks): 38w4d : 1 Para: 0 Narrative: Pt is a 23yo at 38w4d here for IOL due to gestational hypertension. Pt denies any vaginal bleeding, contractions prior to presentation, or LOF. She is feeling her baby move regularly. Her is complicated by gestational HTN. She was noted to have elevated blood pressure in clinic at 36w5d. Evaluation in L&D at that point showed normal BPs. At home with blood pressure checks, her BP was noted to be consistently elevated, however. She was initiated on PO Labetalol, and IOL scheduled. She has had negative pre- eclampsia/HELLP labs. The pts has been otherwise uncomplicated. Since placement of the cervidil, the pt developed regular painful contractions overnight. The cervidil was removed. The pt had SROM with clear fluid present. care: good care, initiated at week # and pounds weight gain Dating criteria OB: based on 1st trimester US only Ultrasounds: normal 1st trimester US and normal mid trimester US Obstetrical complications: gestational hypertension Medical complications OB: none Indications Indication for induction OB: gestational HTN/pre-eclampsia Preadmission Labs Last OB Lab Results: 2 Blood Type A Negative 07/21/24 20:30 Antibody Screen Positive 07/21/24 20:30 Hct 28.2 % (36-46) L 07/21/24 20:30 Hgb 9.3 g/dL (12.0-16.0) L 07/21/24 20:30 Hep Bs Antigen Negative s/c (NEGATIVE) 12/16/23 15:26 Hepatitis C Antibody Negative s/c (NEGATIVE) 12/16/23 15:26 Rubella Antibody 42.7 IU/mL (>15) 12/16/23 15:26 VZV IgG Antibody <135 index (Immune >165) L 12/16/23 15:26 Glucose 1 Hr 50 gm 129 mg/dL (76-139) 05/12/24 17:00 Hemoglobin A1c 5.1 % (4.0-6.0) 12/16/23 15:26 Group B Strep (PCR) Neg for grp b strep 07/02/24 10:30 -: Urine: negative Genetic Screens: Quad screen: Normal External Labs -: Urine: negative Evaluation Evaluation Baseline heart rate: 130 Variability: Moderate (11-25) monitor accelerations: Present Monitor Decelerations: Absent Contraction Frequency (minutes): 2 Uterine Contraction Intensity: Strong/Firm Status: Category l Dilation (cm): 9 Effacement (%): 100 station: -1 [facility] Medical History (Updated 07/21/24 @ 09:27 by Aishwarya Coffman MD) ADD (attention deficit disorder) Depression COVID-19 Surgical History Status post cryotherapy of skin lesion [place] teeth extracted History of removal of skin mole (~2008) Family History Mother Hypertension Thyroid cancer Nodular thyroid disease Father Hyperlipidemia Hypertension Skin cancer Degenerative disc disease History of spinal fusion Grandmother Type 1 diabetes Dementia Grandmother Diabetes mellitus Diabetic kidney disease Grandfather Heavy smoker Aunt Insomnia Aunt Hypertension Heart disease Uncle Stroke Smoker Social History marital status: unmarried,living together number of children: 2 (4 year old stepson, 2 year old stepdaughter) household members: significant other and children lives independently: Yes caregiver/support person: Yes housing: [facility]) pets and animals: Yes (2 cats; s/o managing litter boxes) education level: high school 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[employer]) current occupational exposures/hazards: No special chiki needs: No travel history: recent ([place], [place]) seatbelt use: always helmet use: Yes water heater temp set < 120 deg: Yes working smoke detector in home: Yes fire extinguisher in home: No carbon monox detector in home: Yes firearms in home: Yes firearms unloaded and locked: Yes do you feel safe at home: Yes Smoking Status: Never smoker second hand exposure: Yes (social exposure) alcohol intake: former (typically 1 glass wine daily when not ) substance use type: does not use during the past year weight has: other (wide (10-20lb fluctuates)) well-balanced diet: about half the time daily servings fruits/ve-4 caffeine: Yes (occasional soft drinks or [place]) Type(s) of exercise: none and walking Meds Home Medications and Allergies Home Medications Medication Instructions Recorded Confirmed Type vitamin-ferrous sulfate tab PO 11/28/23 07/16/24 History 27 mg iron-folic acid 0.8 mg tablet Double Electric Breast Pump and #1 ea 04/23/24 07/16/24 Rx Supplies labetalol 100 mg tablet 100 mg PO BID #30 tabs 07/10/24 07/21/24 Rx Allergies Allergy/AdvReac Type Severity Reaction Status Date / Time No Known Drug Allergies Allergy Verified 07/16/24 11:33 OB Exam Resp Effort & Inspection: normal respiratory effort Auscultation: clear to auscultation bilaterally Cardio Rate: regular rate Rhythm: regular rhythm Heart Sounds: S1 normal, S2 normal and no murmurs GI Inspection: non-distended Palpation: Yes soft and No tender Presentation: vertex Objective Labs 07/21/24 20:30 07/21/24 20:30 Labs: Laboratory Results - last 24 hr 07/21/24 07/21/24 19:35 20:30 WBC 16.3 H RBC 3.48 L Hgb 9.3 L Hct 28.2 L MCV 81.0 MCH 26.6 MCHC 32.8 RDW 16.9 H Plt Count 261 Neut % (Auto) 75.3 H Lymph % (Auto) 19.2 L [place] % (Auto) 4.9 Eos % (Auto) 0.4 L Baso % (Auto) 0.2 Neut # (Auto) 83435 H Lymph # (Auto) 3100 [place] # (Auto) 800 Eos # (Auto) 100 Baso # (Auto) 0 Sodium 134 L Potassium 3.7 Chloride 105 Carbon Dioxide 20 L BUN 13 Creatinine 0.69 Estimated GFR > 60 BUN/Creatinine Ratio 18.8 Glucose 133 H Calcium 9.2 Total Bilirubin 0.3 AST 48 H ALT 48 H Alkaline Phosphatase 162 H Total Protein 7.0 Albumin 3.4 L Globulin 3.6 Albumin/Globulin Ratio 0.9 L U Random Total Protein 29 H Urine Creatinine 213.53 Protein/Creatinin Ratio 0.13 Blood Type A Negative Antibody Screen Positive Antibody Identification Anti-D Assessment and Plan Assessment and Plan Assessment and Plan narrative: Pt is a 23yo at 38w4d here for IOL due to gestational hypertension. Pre- eclampsia/HELLP labs negative. Pt received cervidil, converted into active labor with SROM. GBS negative, Rh negative. - FHT reassuring - Expectant management, anticipate - Epidural in place for pain control - GBS negative, no prophylaxis indicated - Rh negative, collect cord blood after delivery for Rhogam determination Time-Based Coding :: [TOTAL MINUTES] spent with patient and on the chart (including review of chart, obtaining history, exam, reviewing outside data, placing orders, documenting exam and treatment plan, and counseling patient) on [DATE].
--- NOTE | 2024-07-22 03:35 | PM.ANES.PR ---
Operative Date/Time/Diagnoses Date of procedure: 07/22/24 Time of procedure: 01:46 Pre-op diagnosis: active labor Post-op diagnosis: same Note PIH discussed r/b/a to BRANDY with PCEA. pt consent to proceed.
--- NOTE | 2024-07-22 03:44 | PM.AN.REGBLK ---
Regional Block Pre-procedure PMH/ROS narrative: active labor PSH/Anesthesia history narrative: n/a ASA Class: III Labs: Hct 28.2 % (36-46) L 07/21/24 20:30 Plt Count 261 X10^3/uL (150-400) 07/21/24 20:30 Medications: Current Medications Generic Name Dose Route Start Last Admin Trade Name Freq PRN Reason Stop Dose Admin Calcium Carbonate 1,000 mg 07/21/24 19:18 07/22/24 01:01 Calcium Carbonate 500 Mg Tab PO 1,000 mg Q2HR PRN Administration Dyspepsia Carboprost Tromethamine 250 mcg 07/21/24 19:18 Carboprost 250 Mcg/Ml Ampul IM Q90M PRN Bleeding Diphenhydramine HCl 25 mg 07/22/24 03:38 Diphenhydramine 50 Mg/Ml Vial IV Q10M PRN Pruritis Ephedrine Sulfate 10 mg 07/22/24 03:38 Ephedrine 50 Mg/Ml Vial IV Q5M PRN Blood pressure decrease more than 20% of baseline. Fentanyl 50 mcg 07/21/24 19:18 Fentanyl 100 Mcg/2 Ml Inj IV Q1H PRN Pain, Moderate (4-6) Oxytocin/Lactated Ringer's 30 unit in 500 mls @ 2 mls/hr 07/21/24 19:30 Oxytocin Premix IV TITRATE LIEN Protocol 2 MILLIUNIT/MIN Lactated Ringer's 1,000 mls @ 100 mls/hr 07/21/24 19:30 07/22/24 01:30 Lactated Ringers IV 07/22/24 05:29 100 mls/hr CONT LIEN Administration Oxytocin/Lactated Ringer's 30 unit in 500 mls @ 200 mls/hr 07/21/24 19:18 Oxytocin Premix IV CONT PRN Bleeding Protocol Tranexamic Acid 1,000 mg/ 100 mls @ 600 mls/hr 07/21/24 19:18 Sodium Chloride IV NOW PRN Bleeding FENT 2MCG/ML BUPIV 0.125% EPI 200 mcg in 100 mls @ 10 mls/hr 07/22/24 03:45 Fentanyl/Bupiv/Ns 2mcg/Ml - 0.125% EPIDURAL CONT LIEN Labetalol HCl 100 mg 07/21/24 21:04 07/21/24 21:18 Labetalol 100 Mg Tablet PO 100 mg BID LIEN Administration Lidocaine HCl 20 ml 07/21/24 19:18 Lidocaine 1% 20 Ml INJ INTRA-OP PRN Post Delivery Methylergonovine Maleate 0.2 mg 07/21/24 19:18 Methylergonovine 0.2 Mg/Ml Vial IM NOW PRN Bleeding Methylergonovine Maleate 0.2 mg 07/21/24 19:18 Methylergonovine 0.2 Mg Tablet PO Q6HR PRN Heavy Bleeding Mineral Oil 30 ml 07/21/24 19:18 Mineral Oil 30 Ml Udc TOP PRN PRN Version Misoprostol 800 mcg 07/21/24 19:18 Misoprostol 200 Mcg Tablet ND NOW PRN Bleeding Misoprostol 400 mcg 07/21/24 19:18 Misoprostol 200 Mcg Tablet SL NOW PRN Bleeding Nalbuphine HCl 2.5 mg 07/22/24 03:38 Nalbuphine 20 Mg/Ml Ampul IV Q10M PRN Pruritis Naloxone HCl 0.2 mg 07/21/24 19:18 Naloxone 0.4 Mg/Ml Vial IV Q2MIN PRN Opiate Reversal Ondansetron HCl 4 mg 07/21/24 19:18 Ondansetron 4 Mg/2 Ml Inj IV Q4HR PRN Nausea And Vomiting Oxytocin 10 unit 07/21/24 19:18 Oxytocin 10 Unit/Ml Vial IM NOW PRN Bleeding Allergies: Allergies Allergy/AdvReac Type Severity Reaction Status Date / Time No Known Drug Allergies Allergy Verified 07/16/24 11:33 Procedure Insertion date: 07/22/24 Insertion time: 02:00 Prep/Local: betadine x3 (chloraprep) and 1% lidocaine Interspace: l3 l4 Patient position: sitting Needle: 18 gauge Hustead Loss of resistance with: saline DHAVAL at (cm): 6 Catheter placed at SKIN (cm): 15 Sensory level: t10 Initial Medications TEST DOSE time: 02:01 TEST DOSE: 1.5% lidocaine with epinephrine 1:200k (mL): 2 BOLUS DOSE time: 02:01 BOLUS DOSE (mL): 5 BOLUS DOSE med: other (infusate) Infusion INFUSION: 0.125% bupivacaine and with fentanyl 2 mcg/mL Initial rate (mL/hr): 10 Subsequent interventions: none Post-procedure Anesthesia date START: 07/22/24 Anesthesia time START: 01:46
[2024-07-22] MEDS: OXYTOCIN PREMIX 30 UNIT/500 ML PLAST..BAG 200 UNIT IV (05:12)
[2024-07-22] MEDS: TRANEXAMIC ACID 1,000 MG in SODIUM CHLORIDE 0.9% 100 ML 600 MG IV (05:14)
[2024-07-22] MEDS: miSOPROStoL 200 MCG TABLET 800 MCG PR (05:14)
[2024-07-22] MEDS: CARBOPROST 250 MCG/ML AMPUL IM (05:18)
[2024-07-22] MEDS: ONDANSETRON 4 MG/2 ML INJ IV (05:33)
[2024-07-22] MEDS: LIDOCAINE 1% 20 ML INJ (05:41)
--- NOTE | 2024-07-22 05:43 | PM.OBPRVD ---
Events: Induced HTN Labor & Delivery Delivery date: 07/22/24 Delivery Time: 05:07 Cervical ripening method: per Cervidil protocol Induction method: none Delivery monitor: external FHT and external uterine Route of delivery: Episiotomy description: None L&D Laceration Description: Perineal - 2nd Degree Quantitative Blood Loss: 950 Anesthesia Type: Epidural Complications: hemorrhage Narrative: PROCEDURE: at 38w4d presented for IOL due to gestational hypertension and was admitted to Labor and Delivery. She received cervidil for induction. She had SROM with clear fluid at 00:30 and rapidly progressed into active labor. The patient progressed through the 1st stage over 3.5 hours. Pain was controlled with an epidural. The patient progressed through the 2nd stage over 15 minutes and delivered a viable female infant with APGARs 7/9 at 5:07 via . The cord was cut and clamped after it stopped pulsating. The placenta delivered with gentle cord traction, and appeared complete. During and after delivery of the placenta, the pt was noted to have heavy bleeding. Initial bimanual massage showed a firm uterus, however it was not maintaining tone. Adequate tone was ultimately achieved with pitocin bolus, TXA, IM Hemabate, rectal cytotec, and bimanual massage. The perineum and vagina were inspected with 2nd degree perineal laceration repaired in the usual fashion with 2-O Vicryl. Needle and sponge counts were correct.? The vagina was inspected and no items were left in situ. Ashley was doing well with Leah Felix, her and her at bedside. PREPROCEDURE DIAGNOSIS: Intrauterine at 38w4d GBS negative RH negative Gestational hypertension POSTPROCEDURE DIAGNOSIS: Intrauterine at 38w4d, delivered Same as preprocedure hemorrhage Clarence Baby 1: gender: Female Presentation: vertex Position: Right Occiput Anterior Placenta delivery description: Spontaneous Cord Vessel Description: 3 Vessels score (1 min): 7 score (5 min): 9 weight: 8 lb 2.02 oz Plan for aftercare: Routine care
[2024-07-22 08:06] VITALS: TEMP 36.9
[2024-07-22] MEDS: ACETAMINOPHEN 325 MG TABLET 650 MG PO ×3 (08:06→22:46)
[2024-07-22] MEDS: DERMOPLAST SPRAY 20% 60 ML 1 SPRAY TOP (08:08)
[2024-07-22] MEDS: WITCH HAZEL/GLYCERIN PADS 1 EACH TOP (08:08)
[2024-07-22] MEDS: IBUPROFEN 600 MG TABLET PO ×2 (15:21→22:45)
[2024-07-23] MEDS: CALCIUM CARBONATE 500 MG TAB 1000 MG PO (02:59)
[2024-07-23] MEDS: ACETAMINOPHEN 325 MG TABLET 650 MG PO ×3 (04:57→18:45)
[2024-07-23] MEDS: IBUPROFEN 600 MG TABLET PO ×3 (04:57→18:44)
[2024-07-23 06:21] LABS: Add Manual Diff / Slide Review NO; Basophils Absolute Auto 0 /uL (0-100); Basophils Percent Auto 0.2 % (0-2); Eosinophils Absolute Auto 100 /uL (0-450); Eosinophils Percent Auto 0.4 % (2-4); Lymphocytes Absolute Auto 3900 /uL (1100-4500); Lymphocytes Percent Auto 23.5 % (25-40); Mean Corpuscular HGB Conc 33.4 % (30-36); Mean Corpuscular Volume 80.7 fL (80-100); Monocytes Absolute Auto 1200 /uL (0-900); Neutrophils Absolute Auto 11400 /uL (1500-7000); Neutrophils Percent Auto 68.9 % (50-75); Platelet Count 194 X10^3/uL (150-400); Red Blood Cell Count 2.53 X10^6/uL (4.0-5.2); Red Cell Distribution Width 17.3 % (11.6-14.8); White Blood Cell Count 16.5 X10^3/uL (4.5-11.0)
[2024-07-23 06:23] LABS: Hemoglobin 6.8 g/dL (12.0-16.0)
[2024-07-23 06:24] LABS: Hematocrit 20.4 % (36-46)
[2024-07-23 08:24] VITALS: BP 135/67; PULSE 95; RESP 15; TEMP 36.9
[2024-07-23] MEDS: DOCUSATE 100 MG CAPSULE PO (09:37)
[2024-07-23] MEDS: PRENATAL VIT,CALC/IRON/FOLIC 1 TABLET 1 TAB PO (09:37)
[2024-07-23] MEDS: LANOLIN OINT 7 GM 1 APPLIC TOP (09:38)
[2024-07-23] MEDS: FERROUS SULFATE 325 MG TABLET PO (09:39)
[2024-07-23] MEDS: WITCH HAZEL/GLYCERIN PADS 1 EACH TOP (09:41)
--- NOTE | 2024-07-23 15:33 | PM.OBPN.1 ---
Subjective - OB Subjective Narrative: Patient reports that she is doing well. Her lochia is decreasing appropriately. She has voided successfully. She is passing flatus and ambulating. She denies any lightheadedness, palpitations. She is struggling with , and did not like pumping due to discomfort. She is using a nipple shield. She has supplemented with formula, up to 20cc. Date Patient Seen: 07/23/24 Time Patient Seen: 15:00 Exam Vital Signs (past 8 hours): - 07/23/24 08:24 Temperature 98.4 F Pulse Rate 95 H Respiratory Rate 15 Blood Pressure 135/67 Narrative Exam Narrative: Gen: NAD, sitting comfortably in bed, appears well CV: RRR, no murmurs Resp: clear to auscultation bilaterally Abd: soft, appropriately tender, fundus firm and below the umbilicus, nondistended Ext: no edema Objective Labs 07/23/24 05:40 07/21/24 20:30 Labs: Laboratory Results - last 24 hr 07/21/24 07/23/24 20:30 05:40 WBC 16.5 H RBC 2.53 L Hgb 6.8 L* Hct 20.4 L* MCV 80.7 MCH 27.0 MCHC 33.4 RDW 17.3 H Plt Count 194 Neut % (Auto) 68.9 Lymph % (Auto) 23.5 L [place] % (Auto) 7.0 Eos % (Auto) 0.4 L Baso % (Auto) 0.2 Neut # (Auto) 75330 H Lymph # (Auto) 3900 [place] # (Auto) 1200 H Eos # (Auto) 100 Baso # (Auto) 0 Blood Type A Negative Antibody Screen Positive Antibody Identification Anti-D Crossmatch See Detail Assessment & Plan Plan Comments: Pt is a 23yo PPD#1 s/p with hemorrhage. Pt with significant drop in H/H, but asymptomatic. - Normal care - Transfuse 1 unit PRBCs now - Repeat CBC after transfusion - support Time-Based Coding :: [TOTAL MINUTES] spent with patient and on the chart (including review of chart, obtaining history, exam, reviewing outside data, placing orders, documenting exam and treatment plan, and counseling patient) on [DATE].
[2024-07-23 15:53] LABS: Hematocrit 23.6 % (36-46)
[2024-07-24] MEDS: IBUPROFEN 600 MG TABLET PO ×2 (00:55→07:01)
[2024-07-24] MEDS: ACETAMINOPHEN 325 MG TABLET 650 MG PO ×2 (00:55→07:01)
[2024-07-24] MEDS: DOCUSATE 100 MG CAPSULE PO (08:14)
[2024-07-24] MEDS: PRENATAL VIT,CALC/IRON/FOLIC 1 TABLET 1 TAB PO (08:14)
[2024-07-24] MEDS: SODIUM FERRIC GLUCONAT/SUCROSE 125 MG in SODIUM CHLORIDE 0.9% 100 ML 110 MG IV (09:51)
--- NOTE | 2024-07-24 11:18 | P.DS_ITS ---
Discharge Providers Provider Date of admission: 07/21/24 19:09 Discharge Date: 07/24/24 Primary care physician: Rowena MUKHERJEE Provider Consults: 07/23/24 05:41 Consult to Shuttle Route Vehicle Operator Routine Comment: Discharge provider: Aishwarya Coffman MD Summary Hospital Course Date Patient Seen: 07/24/24 Time Patient Seen: 11:19 Diagnoses: Intrauterine at 38w4d GBS negative RH negative Gestational hypertension hemorrhage Acute blood loss anemia Hospital Course: The pt presented with IOL due to gestational hypertension. She received cervidil, and transitioned into active labor after SROM. She progressed to complete and had an of a viable baby girl. After delivery the pt had a hemorrhage due to uterine atony that was controlled with pitocin, TXA, hemabate, and cytotec. A 2nd degree perineal laceration was then repaired. The pt required 1 unit PRBC transfusion in addition to an iron infusion for acute blood loss anemia. , there were no additional complications. At the time of discharge she was voiding, ambulating, and passing flatus without difficulty. Her lochia was decreasing appropriately. Her pain was well controlled. She was having some difficulty with , and so was pumping and formula supplementing for now. She will f/u in 6 weeks for check. Peripartum Data Delivery Method: Natural Vaginal Laceration Description: Perineal - 2nd Degree Episiotomy description: None Procedures: spontaneous vaginal delivery complications: perineal laceration, transfusion and uterine atony 1: Gender: Female Disposition of : home Status at Discharge Cognitive/behavioral status at discharge: oriented Functional status at discharge: independent ambulation Overall status at discharge: patient is progressing back to baseline Time Spent with Patient Time attestation: Total time spent providing and/or coordinating discharge services: Objective Labs 07/23/24 15:29 07/21/24 20:30 Labs: Laboratory Results - last 24 hr 07/21/24 07/23/24 20:30 15:29 Hgb 8.0 L Hct 23.6 L Crossmatch See Detail Exam Narrative Exam Narrative: Gen: NAD, sitting comfortably in bed, appears well CV: RRR, no murmurs Resp: clear to auscultation bilaterally Abd: soft, appropriately tender, fundus firm and below the umbilicus, nondistended Ext: no edema Discharge Plan Discharge Plan Patient Disposition: Home Discharge orders & Medications Prescriptions: New acetaminophen 325 mg Tablet 650 mg PO Q6HR PRN (Reason: Pain, Mild (1-3)) Qty: 30 0RF ferrous sulfate 325 mg (65 mg iron) Tablet 325 mg PO DAILY Qty: 30 0RF docusate sodium 100 mg Capsule 100 mg PO DAILY Qty: 30 0RF ibuprofen 600 mg Tablet 600 mg PO Q6HR PRN (Reason: Pain, Mild (1-3)) Qty: 30 0RF Continued (DME) Double Electric Breast Pump and Supplies See Rx Instructions .ROUTE .MEDSUPPLY Qty: 1 0RF Rx Instructions: As directed vit-ferrous sulfat-FA 27 mg iron- 0.8 mg tablet 1 tab PO DAILY Discontinued labetalol 100 mg tablet 100 mg PO BID Qty: 30 0RF Follow up/Referrals: Provider,Rowena MUKHERJEE [Primary Care Provider] - Aishwarya Coffman MD [Physician] - 08/31/24 12:00 pm (Please follow up w/ Suzy on July 29 at 11:00am at the [address] [place] [address]. Additionaly, please follow up w/ Dr. Coffman for your 6 week appointment on FridayAugust 31 @12:00pm! Please arrive at 11:45pm!) Diet/Activity/Treatments Diet: Diet as Tolerated and Regular Skin/Wound/Dressing Care Report to your healthcare provider any signs of infection, such as:: chills, fever, increased pain and unusual drainage Visit Report/Discharge Packet Instructions: DI for Hemorrhage, Fitness, DI for Labor and Delivery, Vaginal , DI for Depression Stand Alone Forms: Discharge: Care, Patient Portal/API, Stroke Signs & Symptoms Discharge Data Primary Care Provider: ProviderRowena Discharges patient from system. Discharge Date/Time: 07/24/24 11:43
== END 2024-07-24 11:43 | disposition home or self-care (01) | DRG 806 ==
PROVIDERS: Admitting Provider Family Medicine; Referring Provider Family Medicine; Visit Provider Family Medicine
DX: O13.4 Gestational [pregnancy-induced] hypertension without significant proteinuria, complicating childbirth (principal); D62 Acute posthemorrhagic anemia; Z37.0 Single live birth; O72.1 Other immediate postpartum hemorrhage; O90.81 Anemia of the puerperium; Z3A.38 38 weeks gestation of pregnancy; O70.1 Second degree perineal laceration during delivery
CPT/HCPCS: 36415; 36430; 59025; 59050; 59200; 80053; 82570; 84156; 85014; 85018; 85025; 86850; 86870; 86900; 86901; P9016; G0379; J2405; J2590; J2916; S0191

== ENCOUNTER 2024-07-25 12:17 | Emergency (ER) | payer OTHER, SELFPAY ==
[2024-07-25 12:47] VITALS: BP 133/81; PULSE 103; RESP 18; TEMP 37.1; O2SAT 97; BMI 37.0
--- NOTE | 2024-07-25 12:53 | DI.US.S_ITS ---
PROCEDURE: US PERIPH VENOUS UP EXTREM LT INDICATIONS: r/o blood clot TECHNIQUE: Real-time imaging, as well as color and pulse Doppler interrogation, was performed of the upper extremity deep veins from the inferior neck to the antecubital fossa. COMPARISON: None. FINDINGS: There is a thrombosed left dorsal cephalic versus radial superficial vein. The internal jugular vein, visualized portions of the subclavian vein, axillary, and brachial veins are free of intraluminal thrombus. Where physically possible, the veins are normally compressible. Color and pulse Doppler demonstrate normal intraluminal flow, with expected phasicity and pulsatility. Additional scanning of the cephalic and basilic veins of the superficial system demonstrates normal compressibility, without thrombus. IMPRESSION: 1. Left dorsal cephalic versus radial superficial venous thrombosis. 2. No deep venous thrombosis. These findings were communicated via telephone to the ordering provider, Dr. uCello, by Stephan Alonzo MD on 07/25/2024 at 12:57 p.m. Dictated by: Stephan Alonzo M.D. on 07/25/2024 at 12:49 Approved by: Stephan Alonzo M.D. on 07/25/2024 at 12:57
--- NOTE | 2024-07-25 13:35 | ED_ITS ---
HPI - Extremity Problem <Aranza Diop PA-C - Last Filed: 07/25/24 14:35> General Chief complaint: Extremity Problem,Nontraumatic Stated complaint: Poss Clot L Arm, Swelling, Px Time Seen by Provider: 07/25/24 13:32 Source: patient Mode of arrival: Ambulatory History of Present Illness HPI Narrative: Ms. Chilel is a pleasant 23-year-old female with a past medical history of anemia, vaginal delivery on 07/22/2024, induction of labor due to gestational hypertension complicated by hemorrhage, was discharged yesterday and comes to the emergency department today for concerns of left arm pain and swe lling at the site of where her IV was, concerned for blood clot. She noticed pain and swelling around left wrist IV site last night after midnight. This area has become more firm and swollen and painful since then. She has some mild erythema on top of this area. She comes to the emergency department for further evaluation potential blood clot in this area. States that she is overall feeling okay since delivery just very tired. She denies any fevers. Denies any history of prior blood clots. Reports she is multiple bruises on both of her arms because they had to get multiple IVs. Related Data Home Medications Medication Instructions Recorded Confirmed vitamin-ferrous sulfate 1 tab PO DAILY 11/28/23 07/23/24 27 mg iron-folic acid 0.8 mg tablet Previous Rx's Medication Instructions Recorded Double Electric Breast Pump and #1 ea 04/23/24 Supplies acetaminophen 325 mg tablet 650 mg (2 x 325 mg) PO Q6HR PRN 07/24/24 Pain, Mild (1-3) #30 tabs docusate sodium 100 mg capsule 100 mg PO DAILY #30 caps 07/24/24 ferrous sulfate 325 mg (65 mg 325 mg PO DAILY #30 tabs 07/24/24 iron) tablet ibuprofen 600 mg tablet 600 mg PO Q6HR PRN Pain, Mild 07/24/24 (1-3) #30 tabs Allergies Allergy/AdvReac Type Severity Reaction Status Date / Time No Known Drug Allergies Allergy Verified 07/25/24 12:47 Review of Systems <Aranza Diop PA-C - Last Filed: 07/25/24 14:35> Review of Systems ROS Unobtainable: All systems reviewed & are unremarkable except as noted in HPI and below Patient History <Aranza Diop PA-C - Last Filed: 07/25/24 14:35> Medical History ADD (attention deficit disorder) Depression COVID-19 Surgical History Status post cryotherapy of skin lesion Vel[place] teeth extracted History of removal of skin mole (~2008) Family History Mother Hypertension Thyroid cancer Nodular thyroid disease Father Hyperlipidemia Hypertension Skin cancer Degenerative disc disease History of spinal fusion Grandmother Type 1 diabetes Dementia Grandmother Diabetes mellitus Diabetic kidney disease Grandfather Heavy smoker Aunt Insomnia Aunt Hypertension Heart disease Uncle Stroke Smoker Social History marital status: unmarried,living together number of children: 2 household members: significant other and children lives independently: Yes caregiver/support person: Yes housing: condominium pets and animals: Yes (2 cats; s/o managing litter boxes) education level: high school occupational status: employed current occupational exposures/hazards: No special chiki needs: No travel history: recent seatbelt use: always helmet use: Yes water heater temp set < 120 deg: Yes working smoke detector in home: Yes fire extinguisher in home: No carbon monox detector in home: Yes firearms in home: Yes firearms unloaded and locked: Yes do you feel safe at home: Yes Smoking Status: Never smoker second hand exposure: Yes (social exposure) alcohol intake: former substance use type: does not use during the past year weight has: other well-balanced diet: about half the time daily servings fruits/ve-4 caffeine: Yes (occasional soft drinks or Andrea) Type(s) of exercise: none and walking Smoking Status: Never smoker Exam <Aranza Diop PA-C - Last Filed: 07/25/24 14:35> Narrative Exam Narrative: GENERAL: 23 year old patient appears stated age. Well-developed patient, in no acute distress. 3 day infant with her. HEAD: Atraumatic. Normocephalic. CARDIOVASCULAR: Mildly increased rate. RESPIRATORY: ?Nonlabored respirations. ?Speaking in clear, full sentences. GASTROINTESTINAL: Abdomen soft, non-tender, nondistended. EXTREMITIES: Strong radial pulse bilaterally and full range of motion of both hands and wrists bilaterally. NEURO: AOx3. ?Clear speech. ?Moves all 4 extremities appropriately. SKIN: Pale. Left wrist with scab from prior IV site on radial aspect. Mild surrounding erythema about 5cm. This area is firm and tender. No streaking erythema. Small bruises on BL arms. Initial Vital Signs Initial Vital Signs: Vital Signs Temperature 98.8 F 07/25/24 12:47 Pulse Rate 103 H 07/25/24 12:47 Respiratory Rate 18 07/25/24 12:47 Blood Pressure 133/81 07/25/24 12:47 Pulse Oximetry 97 07/25/24 12:47 Oxygen Delivery Method Room Air 07/25/24 12:47 <Ambrose Cuello MD - Last Filed: 07/25/24 20:19> Initial Vital Signs Initial Vital Signs: Vital Signs Temperature 98.8 F 07/25/24 12:47 Pulse Rate 103 H 07/25/24 12:47 Respiratory Rate 18 07/25/24 12:47 Blood Pressure 133/81 07/25/24 12:47 Pulse Oximetry 97 07/25/24 12:47 Oxygen Delivery Method Room Air 07/25/24 12:47 Course <Aranza Diop PA-C - Last Filed: 07/25/24 14:35> Orders Ordered: ED Orders 07/25/24 12:53 US periph venous up extrem lt Stat Discontinued Medications Acetaminophen (Acetaminophen 325 Mg Tablet) 975 mg PO NOW ONE Stop: 07/25/24 13:47 Last Admin: 07/25/24 13:57 Dose: 975 mg Documented By: ROXANA Ibuprofen (Ibuprofen 400 Mg Tablet) 400 mg PO NOW ONE Stop: 07/25/24 13:47 Last Admin: 07/25/24 13:57 Dose: 400 mg Documented By: ROXANA Vital Signs Vital signs: Vital Signs - 8 hr 07/25/24 12:47 07/25/24 14:50 Temperature 98.8 F 98.3 F Pulse Rate 103 H 100 H Respiratory Rate 18 16 Blood Pressure 133/81 138/80 Pulse Oximetry 97 97 Oxygen Delivery Method Room Air Room Air <Ambrose Cuello MD - Last Filed: 07/25/24 20:19> Orders Ordered: ED Orders 07/25/24 12:53 US periph venous up extrem lt Stat Discontinued Medications Acetaminophen (Acetaminophen 325 Mg Tablet) 975 mg PO NOW ONE Stop: 07/25/24 13:47 Last Admin: 07/25/24 13:57 Dose: 975 mg Documented By: ROXANA Ibuprofen (Ibuprofen 400 Mg Tablet) 400 mg PO NOW ONE Stop: 07/25/24 13:47 Last Admin: 07/25/24 13:57 Dose: 400 mg Documented By: ROXANA Vital Signs Vital signs: Vital Signs - 8 hr 07/25/24 12:47 07/25/24 14:50 Temperature 98.8 F 98.3 F Pulse Rate 103 H 100 H Respiratory Rate 18 16 Blood Pressure 133/81 138/80 Pulse Oximetry 97 97 Oxygen Delivery Method Room Air Room Air MDM - Extremity (Nontraumatic) <Aranza Diop PA-C - Last Filed: 07/25/24 14:35> Medical Records Attestation: I reviewed the patient's medical records. MDM Narrative Medical decision making narrative: 23-year-old female with a past medical history of anemia, vaginal delivery on 07/22/2024, induction of labor due to gestational hypertension complicated by hemorrhage, was discharged yesterday and comes to the emergency department today for concerns of left arm pain and swelling at the site of where her IV was, concerned for blood clot. Differential diagnosis includes but is not limited to DVT, superficial thrombophlebitis, cellulitis, hematoma, local IV site reaction, etc. On exam patient is in no acute distress, nontoxic appearing, vital signs within normal limits except for mildly elevated heart rate of 103, patient states she has a elevated heart rate at baseline. Left arm ultrasound ordered in triage. She has prior IV site on the left wrist with some very mild surrounding erythema, this area is swollen and firm. We will treat with ibuprofen and acetaminophen at this time, patient states she is taking this regularly anyway and is due for another dose. Ultrasound reveals left dorsal cephalic versus renal superficial venous thrombosis. No deep venous thrombosis. Attending ED physician Dr. Cuello called to inform me that radiologist spoke with him and stated that ultrasound reveals a possible cephalic versus radial superficial venous thrombosis, patient should have repeat ultrasound in 2-3 days for further evaluation. At this time patient can be treated with ibuprofen/ac etaminophen, warm/cool compresses, repeat ultrasound in 2-3 days. She should return to the emergency department immediately if she develops any fevers, worsening pain swelling redness or other concerns. Patient verbalized understanding of all of this information and was provided with a copy of her ultrasound report. She is agreeable to the plan, ED return precautions discussed, stable for discharge home. Discharge Plan Departure Patient Disposition: Home Clinical Impression: Superficial venous thrombosis of left arm Instructions: DI for Superficial Thrombophlebitis Activity Restrictions/Additional Instructions: Thank you for coming to the emergency department. Your ultrasound today revealed a superficial thrombosis of either the cephalic or the radial vein on your left wrist. We recommend having a repeat ultrasound in 2-3 days for further evaluation. At this time there is no evidence of a deep venous thrombosis that would require blood thinners. We do however want you to use ibuprofen and Tylenol for pain, use gentle warm and cool compresses on the area for pain. Please return to the emergency department immediately if you develop severe pain, increased redness, fevers or any concerns. Please follow up with your primary care doctor within the next 2-3 days for ER follow-up. (If you do not have a PCP you can call [phone]. ?to schedule an appointment with an [facility] Primary Care Provider) IF YOU DEVELOP ANY NEW OR WORSENING SYMPTOMS, RETURN TO THE ER! Please read the attached instructions, they highlight more specific treatments and interventions for you at home. Thank you for letting me participate in your care, Aranza Diop PA-C Prescriptions: No Action (DME) Double Electric Breast Pump and Supplies See Rx Instructions .ROUTE .MEDSUPPLY Qty: 1 0RF Rx Instructions: As directed vit-ferrous sulfat-FA 27 mg iron- 0.8 mg tablet 1 tab PO DAILY acetaminophen 325 mg Tablet 650 mg PO Q6HR PRN (Reason: Pain, Mild (1-3)) Qty: 30 0RF ferrous sulfate 325 mg (65 mg iron) Tablet 325 mg PO DAILY Qty: 30 0RF docusate sodium 100 mg Capsule 100 mg PO DAILY Qty: 30 0RF ibuprofen 600 mg Tablet 600 mg PO Q6HR PRN (Reason: Pain, Mild (1-3)) Qty: 30 0RF Referrals: ProviderRowena [Primary Care Provider] - Stand Alone Forms: Patient Portal/API/Survey ED Sign-out <Ambrose Cuello MD - Last Filed: 07/25/24 20:19> Cosign ED Attending Cosignature Attestation: I was immediately available in the department for consultation. This documentation has been reviewed and I agree with assessment and plan. Supervised by Ambrose Cuello MD
[2024-07-25] MEDS: IBUPROFEN 400 MG TABLET PO (13:57)
[2024-07-25] MEDS: ACETAMINOPHEN 325 MG TABLET 975 MG PO (13:57)
[2024-07-25 14:50] VITALS: BP 138/80; PULSE 100; RESP 16; TEMP 36.8; O2SAT 97
== END 2024-07-25 14:52 | disposition home or self-care (01) ==
PROVIDERS: Emergency Provider Physician Assistant
DX: I82.612 Acute embolism and thrombosis of superficial veins of left upper extremity (principal)
CPT/HCPCS: 93971; 99283

== ENCOUNTER 2024-07-27 15:54 | Emergency (ER) | payer OTHER, SELFPAY ==
[2024-07-27 15:58] VITALS: BP 150/79; PULSE 118; RESP 16; TEMP 36.3; O2SAT 97; BMI 37.2
--- NOTE | 2024-07-27 17:00 | DI.US.S_ITS ---
PROCEDURE: US PELVIC COMPLETE INDICATIONS: possible retained products/ 5 days TECHNIQUE: Real-time scanning was performed of the pelvic organs, with image documentation. Additional endovaginal scanning was necessary due to incomplete visualization of the adnexal and endometrial structures by transabdominal scanning. COMPARISON: [facility], US, US OB >= 14 WEEKS FETUS, 06/11/2024, 12:08. FINDINGS: Uterus: 14.7 x 7.8 x 8.8 cm. Ill-defined endometrium. Anteverted positioning. Vascular region in the anterior endometrium is focally present, with heterogeneous echotexture. Ovaries: Right ovary is not seen. Left ovary is nonenlarged. Other: No pathologic free fluid. IMPRESSION: Enlarged heterogeneous uterus. Ill-defined endometrium with focal vascular region in the anterior portion, which could represent retained products of conception. Dictated by: Gilmar Bullock M.D. on 07/27/2024 at 19:09 Approved by: Gilmar Bullock M.D. on 07/27/2024 at 19:10
--- NOTE | 2024-07-27 19:00 | PC.NURSE ---
Pt reports after follow up appt w/ Dr. Figueroa pt had about a little larger than golf ball size blood clot from her vagina come out; pt was told to come to the ER if this happened due to pt hemorrhaging during labor. Pt reports she gave 5 days ago and this was the only instance of a clot; pt denies pain or cramping. Denies N/V/fevers. Pt reports she had hypertension with her but otherwise her bp has been WNL since giving .
[2024-07-27 19:38] LABS: Add Manual Diff / Slide Review NO; Basophils Absolute Auto 0 /uL (0-100); Basophils Percent Auto 0.4 % (0-2); Eosinophils Absolute Auto 100 /uL (0-450); Eosinophils Percent Auto 0.8 % (2-4); Hemoglobin 9.5 g/dL (12.0-16.0); Lymphocytes Absolute Auto 3400 /uL (1100-4500); Lymphocytes Percent Auto 25.6 % (25-40); Mean Corpuscular HGB Conc 32.8 % (30-36); Mean Corpuscular Hemoglobin 27.4 PG (26-34); Mean Corpuscular Volume 83.6 fL (80-100); Monocytes Absolute Auto 900 /uL (0-900); Monocytes Percent Auto 6.8 % (3-14); Neutrophils Absolute Auto 8800 /uL (1500-7000); Neutrophils Percent Auto 66.4 % (50-75); Platelet Count 409 X10^3/uL (150-400); Red Blood Cell Count 3.47 X10^6/uL (4.0-5.2); Red Cell Distribution Width 17.7 % (11.6-14.8); White Blood Cell Count 13.2 X10^3/uL (4.5-11.0)
[2024-07-27 19:49] VITALS: BP 132/85
[2024-07-27 19:50] VITALS: PULSE 96; O2SAT 97
[2024-07-27 19:50] LABS: Alanine Aminotransferase 33 IU/L (<35); Albumin 3.9 g/dL (3.5-5.0); Alkaline Phosphatase 137 U/L (38-126); Aspartate Aminotransferase 42 IU/L (14-36); BUN Creatinine Ratio 13.6 (6-22); Bilirubin Total 0.4 mg/dL (0.2-1.3); Blood Urea Nitrogen 9 mg/dL (7-17); Carbon Dioxide 25 mmol/L (22-32); Chloride 105 mmol/L (98-107); Estimated Glomerular Filt Rate > 60 mL/min (>60); Globulin 3.8 g/dL (1.7-4.1); Glucose 86 mg/dL (70-100); HEMOLYSIS < 15 (0-50); Potassium 3.7 mmol/L (3.4-5.1); Sodium 139 mmol/L (137-145); Total Protein 7.7 g/dL (6.3-8.2)
--- NOTE | 2024-07-27 20:10 | ED_ITS ---
HPI - General Chief complaint: OB/Uterine Contractions Stated complaint: large blood clots Time Seen by Provider: 07/27/24 19:16 History of Present Illness HPI Narrative: Patient is a female with a history of preeclampsia and hemorrhage who presents with concerns of passing large blood clots. She reports experiencing significant bleeding since giving , enough to fill an adult diaper mcfp through the day and once at night. The patient had a rapid labor lasting 4.5 hours and delivered vaginally. , she experienced significant blood loss, received a blood transfusion, and was given iron supplements. She was discharged two days later but returned to the hospital the following day for a blood clot in her arm. The patient has a history of anemia prior to . Past Medical History: Preeclampsia, hemorrhage, anemia. Surgical History: None mentioned. Medications: None mentioned. Allergies: None mentioned. Related Data Home Medications Medication Instructions Recorded Confirmed vitamin-ferrous sulfate 1 tab PO DAILY 11/28/23 07/27/24 27 mg iron-folic acid 0.8 mg tablet Previous Rx's Medication Instructions Recorded Double Electric Breast Pump and #1 ea 04/23/24 Supplies acetaminophen 325 mg tablet 650 mg (2 x 325 mg) PO Q6HR PRN 07/24/24 Pain, Mild (1-3) #30 tabs docusate sodium 100 mg capsule 100 mg PO DAILY #30 caps 07/24/24 ferrous sulfate 325 mg (65 mg 325 mg PO DAILY #30 tabs 07/24/24 iron) tablet ibuprofen 600 mg tablet 600 mg PO Q6HR PRN Pain, Mild 07/24/24 (1-3) #30 tabs Allergies Allergy/AdvReac Type Severity Reaction Status Date / Time No Known Drug Allergies Allergy Verified 07/27/24 11:07 Review of Systems Review of Systems Narrative: Constitutional: reports significant bleeding , fatigue. Eyes: no visual changes. Ears/Nose/Throat: no nasal congestion or drainage. Respiratory: no shortness of breath. Cardiac: no chest pain. Gastrointestinal: no nausea and vomiting. Skin: no laceration, no rash. Musculoskeletal: no extremity pain. Neurologic: no confusion. Psychiatric: no mood change. Genitourinary: reports passing large blood clots, significant bleeding . Hematologic: history of anemia, hemorrhage. Other: other. Exam Narrative Exam Narrative: General: Alert, appears fatigued. Skin: Good turgor, no rash, unusual bruising or prominent lesions. Head: Normocephalic, atraumatic. HEENT: Conjunctiva clear, EOM intact, PERRL, Mucous membranes moist. Neck: Supple, normal ROM. Heart: Regular rate and rhythm, no murmur or gallop or rubs. Lungs: Clear to auscultation. No rales, rhonchi, or wheezes. Abdomen: Soft and nontender. Bowel sounds normal. No mass or hernia. Back: Spine normal without deformity or tenderness, no CVA tenderness. Extremities: No deformities, edema. Peripheral pulses intact. Reports a blood clot in the arm. Neurologic: CN 2-12 normal. Normal sensation and motor exam. Psychiatric: Oriented X3. Normal mood and affect. Initial Vital Signs Initial Vital Signs: Vital Signs Temperature 97.3 F L 07/27/24 15:58 Pulse Rate 118 H 07/27/24 15:58 Respiratory Rate 16 07/27/24 15:58 Blood Pressure 150/79 H 07/27/24 15:58 Pulse Oximetry 97 07/27/24 15:58 Oxygen Delivery Method Room Air 07/27/24 15:58 Course Orders Ordered: ED Orders 07/27/24 19:30 CBC Auto Diff [Complete Blood Count AUTO DIFF] Stat CMP [Comprehensive Metabolic Panel] Stat Vital Signs Vital signs: Vital Signs - 8 hr 07/27/24 19:49 07/27/24 19:50 07/27/24 21:00 Pulse Rate 96 H 101 H Respiratory Rate 16 Blood Pressure 132/85 142/92 H Pulse Oximetry 97 97 Oxygen Delivery Method Room Air Room Air MDM - OB/Uterine Contractions Lab Data Lab results narrative: I reviewed patient's lab results shows mild leukocytosis, mild anemia that appears to be improved from previous value no significant thrombocytopenia normal kidney function 07/27/24 19:30 07/27/24 19:30 Labs: Lab Results 07/27/24 Range/Units 19:30 WBC 13.2 H (4.5-11.0) X10^3/uL RBC 3.47 L (4.0-5.2) X10^6/uL Hgb 9.5 L (12.0-16.0) g/dL Hct 29.0 L (36-46) % MCV 83.6 (80-100) fL MCH 27.4 (26-34) PG MCHC 32.8 (30-36) % RDW 17.7 H (11.6-14.8) % Plt Count 409 H (150-400) X10^3/uL Neut % (Auto) 66.4 (50-75) % Lymph % (Auto) 25.6 (25-40) % Montgomery % (Auto) 6.8 (3-14) % Eos % (Auto) 0.8 L (2-4) % Baso % (Auto) 0.4 (0-2) % Neut # (Auto) 8800 H (8350-3396) /uL Lymph # (Auto) 3400 (1377-7785) /uL Montgomery # (Auto) 900 (0-900) /uL Eos # (Auto) 100 (0-450) /uL Baso # (Auto) 0 (0-100) /uL Sodium 139 (137-145) mmol/L Potassium 3.7 (3.4-5.1) mmol/L Chloride 105 (98-107) mmol/L Carbon Dioxide 25 (22-32) mmol/L BUN 9 (7-17) mg/dL Creatinine 0.66 (0.52-1.04) mg/dL Estimated GFR > 60 (>60) mL/min BUN/Creatinine Ratio 13.6 (6-22) Glucose 86 (70-100) mg/dL Calcium 9.0 (8.4-10.2) mg/dL Total Bilirubin 0.4 (0.2-1.3) mg/dL AST 42 H (14-36) IU/L ALT 33 (<35) IU/L Alkaline Phosphatase 137 H (38-126) U/L Total Protein 7.7 (6.3-8.2) g/dL Albumin 3.9 (3.5-5.0) g/dL Globulin 3.8 (1.7-4.1) g/dL Albumin/Globulin Ratio 1.0 (1.0-2.8) Imaging Data US - OB: Radiologist's Impression: Radiology report shows evidence of potential retained clot or retained products of conception within the uterus, difficult to fully interpret given recent delivery -reviewed imaging with OBGYN MDM Narrative Medical decision making narrative: INITIAL EVALUATION AND PLAN: - Obtain blood work to evaluate current blood counts. - Perform an ultrasound to assess for retained products of conception or other abnormalities. - Consult with OBGYN to determine if the findings are within normal expectations or if further intervention is needed. - Monitor for signs of significant bleeding or hemodynamic instability. - Provide return precautions for increased bleeding or severe abdominal pain. - Follow up with the patient once lab results and ultrasound findings are available. Differential diagnosis includes but is not limited to: hemorrhage, retained products of conception, retained blood clot, anemia -case discussed with of the obstructed team who reviewed imaging and does not believe the patient needs to stay for D and C based on these images her clinical condition and her current labs. They recommend she return to the emergency department for worsening bleeding, fevers chills or abdominal pain. This time state that she can go home and continue to recover from her recent delivery -fit you go but appears to be improved from previous and she has had no ongoing bleeding here in the emergency department, will follow up outpatient with java development manager -no fevers chills leukocytosis no reports of vaginal discharge doubt infectious retained products of conception -no tachycardia, hypotension or significant abdominal pain while here in the emergency department Discharge Plan Departure Patient Disposition: Home Clinical Impression: bleeding Activity Restrictions/Additional Instructions: Your case was discussed with the on-call OBGYN who reviewed the images and believes that it is reasonable for you to go home at this time but please return if you have continued significant bleeding going through more than 1-2 pads for 2 consecutive hours. If you began to feel lightheaded, dizzy or have fevers chills or significant abdominal pain please return to the ED. please call your OB team to schedule a follow up appointment when possible Prescriptions: No Action (DME) Double Electric Breast Pump and Supplies See Rx Instructions .ROUTE .MEDSUPPLY Qty: 1 0RF Rx Instructions: As directed vit-ferrous sulfat-FA 27 mg iron- 0.8 mg tablet 1 tab PO DAILY acetaminophen 325 mg Tablet 650 mg PO Q6HR PRN (Reason: Pain, Mild (1-3)) Qty: 30 0RF ferrous sulfate 325 mg (65 mg iron) Tablet 325 mg PO DAILY Qty: 30 0RF docusate sodium 100 mg Capsule 100 mg PO DAILY Qty: 30 0RF ibuprofen 600 mg Tablet 600 mg PO Q6HR PRN (Reason: Pain, Mild (1-3)) Qty: 30 0RF Referrals: Provider,[place] LONNY [Primary Care Provider] - Stand Alone Forms: Patient Portal/API/Survey
[2024-07-27 21:00] VITALS: BP 142/92; PULSE 101; RESP 16; O2SAT 97
== END 2024-07-27 21:04 | disposition home or self-care (01) ==
PROVIDERS: Emergency Provider Emergency Medicine
DX: O72.1 Other immediate postpartum hemorrhage (principal)
CPT/HCPCS: 76830; 76856; 80053; 85025; 93976; 99281; 99284

== ENCOUNTER → 2024-08-24 08:10 | Outpatient (CLI) | payer OTHER, SELFPAY | PROVIDERS: Visit Provider Physician Assistant | DX: N89.8 Other specified noninflammatory disorders of vagina (principal); J02.9 Acute pharyngitis, unspecified; R30.0 Dysuria | CPT/HCPCS: 87070; 87086; 87210 ==

== ENCOUNTER → 2024-08-31 13:43 | Outpatient (CLI) | payer OTHER, SELFPAY ==
[2024-08-31 14:23] LABS: Appearance Urine UA CLEAR; Bilirubin Urine UA NEGATIVE (NEGATIVE); Color Urine UA YELLOW; Glucose Urine UA NEGATIVE (Negative); Ketones Urine UA NEGATIVE (NEGATIVE); Leukocyte Esterase Urine UA 1+ (NEGATIVE); Nitrite Urine UA NEGATIVE (Negative); Occult Blood Urine UA NEGATIVE (Negative); Protein Urine UA NEGATIVE (Negative); Urobilinogen Urine UA 0.2 E.U./dL (0.2)
[2024-08-31 14:31] LABS: RBC Urine 0-1/HPF (0-5/HPF); Urine Volume 10mL (spun); pH Urine UA 6.5 (4.5-8.0)
[2024-08-31 14:32] LABS: Bacteria Urine Few (2-10); Culture Indicated Urine Specimen Cultured; Squamous Epithelial Cell Urine 1-5 /HPF (0-5/HPF); WBC Urine 5-10/HPF (0-5/HPF)
== END ==
PROVIDERS: Visit Provider Family Medicine
DX: N94.89 Other specified conditions associated with female genital organs and menstrual cycle (principal)
CPT/HCPCS: 81001; 87086